=== PATIENT | female | born 1970 | race African-American/Black ===

== ENCOUNTER 2020-02-20 19:25 | Inpatient (IN) ==
--- NOTE | 2020-02-20 19:41 | DR.SOBA ---
HPI Time Seen Time Seen by Provider: 02/20/20 19:33 Complaints Chief Complaint Doctors Comments: PATIENT COMPLAINS OF INTERMITTENT FEVER, CHILLS, GENERALIZED ACHES X 1 WEEK, ONSET OF DYSPNEA X 2 DAYS WORSE UPON EXERTION. HAS OCCASIONAL PAIN UPON INSPIRATION. HAS ASSOCIATED NONPRODUCTIVE COUGH. PMH PMH Past Medical History: Hypertension Past Surgical History: Yes Surgical History: Appendectomy, Cholecystectomy and Hysterectomy Family History Family Medical History: Diabetes Mellitus, Cancer, CT and Hypertension Social History Do you use any recreational Drugs:: No ROS Review of Systems Constitutional: See HPI, Chills, Fever, Malaise, Weakness and Fatigue Eyes: No Symptoms Reported ENTM: No Symptoms Reported Respiratoy: Non-Productive Cough, Dry Cough and Short of Breath Cardiovascular: Chest Pain (PAINS UPON INSPIRATION) Gastrointestinal/Abdominal: No Symptoms Reported Genitourinary: No Symptoms Reported Neurological: No Symptoms Reported Musculoskeletal: Muscle Pain Integumentary: No Symptoms Reported Hematologic/Lymphatic: No Symptoms Reported Endocrine: No Symptoms Reported Psychiatric: No Symptoms Reported All Other Systems: Reviewed and Negative PE Vital Signs Vitals: Temperature 99.3 F Pulse Rate 88 Respiratory Rate 20 Blood Pressure [Left Arm] 139/89 Blood Pressure [Right Arm] 121/71 Blood Pressure [Standing] 131/76 Blood Pressure [Sitting] 121/78 Blood Pressure [Lying] 120/77 Blood Pressure 133/74 O2 Sat by Pulse Oximetry 96 General Limitations: No Limitations General Appearance: Alert and In No Apparent Distress Head Head Exam: Normal Inspection Eyes Eye exam: Normal Appearance ENT ENT Exam: Normal Exam Neck Neck Exam: Normal Inspection Chest Chest Inspection: Normal Inspection Respiratory Respiratory Exam: Prolonged Expiratory Phase (BILATERAL TERMINAL EXPIRATORY WH EEZES) Respiratory Exam: Bilateral: Clear to Auscultation and Bilateral: Wheezing, Upper: Wheezing and Lower: Wheezing Cardiovascular Cardiovascular Exam: Regular Rate and Normal Rhythm Abdominal Exam Abdominal Exam: Normal Inspection, Normal Bowel Sounds and Soft Extremities Extremities Exam: Normal Inspection Back Back Exam: Normal Inspection Neurologic Neurological Exam: Alert and Oriented X3 Psychiatric Psychiatric Exam: Normal Affect and Normal Mood Skin Skin Exam: Warm, Dry, Intact and Normal Color COURSE Consultation Called: 22:40 Call Returned: 22:43 Consultation Comments: [place] DR [place]AR[place] 2243 FOR INPATIENT ADMIT ROR Labs Reviewed Laboratory Results Reviewed?: Yes Result Diagrams: 02/20/20 20:32 02/20/20 20:32 Laboratory: WBC 4.5 X10^3/uL (3.6-10.0) 02/20/20 20: RBC 5.29 X10^6/uL (3.5-5.4) 02/20/20 20: Hgb 14.0 g/dL (12.0-16.0) 02/20/20 20: Hct 43.1 % (36.0-47.0) 02/20/20 20: MCV 81.4 fL (80.0-100.0) 02/20/20 20: MCH 26.5 pg (27.0-34.0) L 02/20/20 20: MCHC 32.6 g/dL (33.0-35.0) L 02/20/20: RDW 15.5 % (11.6-16.5) 02/20/20 20: Plt Count 359 X10^3/uL (150.0-450.0) 02/20/20: MPV 8.1 fL (7.4-11.0) 02/20/20 20: Neut % (Auto) 71.9 % (42.0-75.0) 02/20/20 20: Lymph % (Auto) 22.9 % (21.0-51.0) 02/20/20: [place] % (Auto) 5.1 % (0.0-13.0) 02/20/20: Eos % (Auto) 0.0 % (0.9-2.9) L 02/20/20: Baso % (Auto) 0.1 % (0.2-1.0) L 02/20/20 20: Neut # (Auto) 3.2 x10^3/uL (2.2-4.8) 02/20/20 20: Lymph # (Auto) 1.0 X10^3/uL (1.3-2.9) L 02/20/20: [place] # (Auto) 0.2 x10^3/uL (0.3-0.8) L 02/20/20 20: Eos # (Auto) 0.0 x10^3/uL (0.0-0.2) 02/20/20 20:32 Baso # (Auto) 0.0 X10^3/uL (0.0-0.1) 02/20/20 20:32 Absolute Nucleated RBC 0.0 /100WBC 02/20/20 20:32 PT 13.4 SECONDS (11.8-14.3) 02/20/20 20:32 INR Target Range - 02/20/20 20: INR 1.05 (0.8-1.3) 02/20/20 20:32 D-Dimer 1.05 ug/ml (0.0-0.57) H* 02/20/20 20:32 Sample Site Rrad 02/20/20 21:01 ABG pH 7.530 (7.35-7.45) H 02/20/20 21:01 ABG pCO2 30.0 mmHg (35.0-45.0) L 02/20/20 21:01 ABG pO2 109.0 mmHg (80.0-100.0) H 02/20/20 21:01 ABG HCO3 25.1 mmol/L (22-26) 02/20/20 21:01 ABG O2 Saturation 99.0 % (90-100) 02/20/20 21:01 ABG Base Excess 3.0 mmol/L (-2.0-2.0) H 02/20/20 21:01 Rene Test Pos 02/20/20 21:01 A-a Gradient 3.0 mmHg 02/20/20 21:01 FiO2 21.0 02/20/20 21:01 Blood Gas Comments Terri abg well-mtf 02/20/20 21:01 Sodium 142 mmol/L (136-145) 02/20/20 20:32 Corrected Sodium 143 mmol/L (136-145) 02/20/20 20:32 Potassium 3.6 mmol/L (3.5-5.1) 02/20/20 20: Chloride 102 mmol/L (98-107) 02/20/20 20:32 Carbon Dioxide 29.0 mmol/L (21-32) 02/20/20 20:32 BUN 10 mg/dL (7-18) 02/20/20 20:32 Creatinine 1.04 mg/dL (0.55-1.02) H 02/20/20 20:32 Est GFR (MDRD) Af Amer > 60 (>60) 02/20/20 20:32 Est GFR (MDRD) Non-Af 60 (>60) 02/20/20 20:32 Glucose 123 mg/dL (65-99) H 02/20/20 20:32 Lactic Acid 1.5 mmol/L (0.4-2.0) 02/20/20 20:32 Calcium 9.0 mg/dL (8.5-10.1) 02/20/20 20:32 Corrected Calcium 9.6 mg/dL (8.5-10.1) 02/20/20 20:32 Total Bilirubin 0.50 mg/dL (0.2-1.0) 02/20/20 20:32 AST 45 Units/L (15-37) H 02/20/20 20:32 ALT 26 Units/L (12-78) 02/20/20 20:32 Alkaline Phosphatase 47 Units/L (46-116) 02/20/20 20:32 Troponin I < 0.02 ng/mL (0-1.5) 02/20/20 20:32 B-Natriuretic Peptide < 5.0 pg/mL (0-79) 02/20/20 20:32 Total Protein 8.1 g/dL (6.4-8.2) 02/20/20 20:32 Albumin 3.2 g/dL (3.4-5.0) L 02/20/20 20:32 Globulin 4.9 g/dL (2.5-4.5) H 02/20/20 20:32 Albumin/Globulin Ratio 0.7 Ratio (1.1-2.1) L 02/20/20 20:32 SARS CoV-2 RNA Rapid SERGIO Positive (NEGATIVE) A 02/20/20 22:40 XRAY XRAY Interpreted by: Radiologist X-ray Results: EXAM: CTA CHEST WITH INTRAVENOUS CONTRAST HISTORY: Shortness of breath. Covid positive. TECHNIQUE: Spiral axial CT images are obtained through the chest with the administration of intravenous contrast. Coronal, sagittal, and 3D MIP images are reformatted. DOSIMETRY: Total DLP 522.0 mGycm; CTDI 183.8 mGy COMPARISON: None available. FINDINGS: CARDIOVASCULAR: There is no evidence for pulmonary embolic disease. The heart size and mediastinal vascular structures are within normal limits. There is no significant aortic or coronary atherosclerosis seen. No thoracic aortic aneurysm or dissection is noted. MEDIASTINUM AND MANAS: No mass lesion, lymphadenopathy, emphysema, or abnormal fluid collection is seen. LUNGS: There are extensive bilateral patchy groundglass parenchymal infiltrates throughout both lungs in keeping with acute Covid pneumonia in the appropriate clinical setting. There is no lung mass, lung nodule, or endobronchial obstructing lesion seen. No pleural effusion or pneumothorax is evident. CHEST WALL: There are no chest wall lesions seen. Bilateral cervical thoracic spine stabilization rods and pedicle screws are noted in situ. The visualized bony structures are otherwise within normal limits. No axillary lymphadenopathy is noted. Bilateral breast implants are noted in situ. UPPER ABDOMEN: Limited views through the upper abdomen demonstrate no gross acute abnormality. Status post cholecystectomy. IMPRESSION: 1. Extensive bilateral patchy groundglass parenchymal infiltrates throughout both lungs in keeping with acute Covid pneumonia in the appropriate clinical setting. Recommend clinical correlation and appropriate follow up evaluation to ensure complete clearance. 2. No evidence for PE, aortic aneurysm or aortic dissection. 3. No endobronchial obstructing lesion, pleural effusion, or pneumothorax seen. Electronically signed by: Michael Leach (Feb 20, 2020 22:18:44) EKG Rate: 84 Rhythm: NSR and ST (borderline st abnormalities) Block: None Opioid Opioid Risk Tool Age (James box if 16-45): No History of Preadolescent Sexual Abuse: No Total: 0 Total Score Risk Category: Low Risk Copyright: Siva GARCIA predicting aberrant behaviors Diagnosis Discharge Problem: Pneumonia due to COVID-19 virus Instructions Forms: Precautions for COVID19 Patient Portal Social Distancing
[2020-02-20 19:42] VITALS: BMI 31.3
[2020-02-20] MEDS ORDERED: SOLU-Medrol 125 MG VIAL IVP ONE ×2 (19:57→20:19)
[2020-02-20] MEDS ORDERED: NS 1000 ML 1,000 ML IV ONE (20:14)
[2020-02-20] MEDS ORDERED: SOLU-Medrol 125 MG VIAL ONE (20:16)
[2020-02-20] MEDS ORDERED: NS 1000 ML 1,000 ML ONE (20:17)
[2020-02-20] MEDS: LEVAQUIN PREMIX IV 750 MG 750 MG/150 ML BAG IV ONE ×2 (20:41→20:45)
[2020-02-20] MEDS ORDERED: LEVAQUIN PREMIX IV 750 MG 750 MG/150 ML BAG IV ONE (20:44)
[2020-02-20 20:47] LABS: BASOPHILS % (AUTO) 0.1 % (0.2-1.0); HEMATOCRIT 43.1 % (36.0-47.0); LYMPHOCYTES % (AUTO) 22.9 % (21.0-51.0); MEAN CORPUSCULAR HEMOGLOBIN 26.5 pg (27.0-34.0); MEAN CORPUSCULAR HGB CONC 32.6 g/dL (33.0-35.0); MEAN CORPUSCULAR VOLUME 81.4 fL (80.0-100.0); MEAN PLATELET VOLUME 8.1 fL (7.4-11.0); MONOCYTES # (AUTO) 0.2 x10^3/uL (0.3-0.8); MONOCYTES % (AUTO) 5.1 % (0.0-13.0); NEUTROPHILS # (AUTO) 3.2 x10^3/uL (2.2-4.8); NEUTROPHILS % (AUTO) 71.9 % (42.0-75.0); PLATELET COUNT 359 X10^3/uL (150.0-450.0); RED BLOOD COUNT 5.29 X10^6/uL (3.5-5.4); RED CELL DISTRIBUTION WIDTH 15.5 % (11.6-16.5); WHITE BLOOD COUNT 4.5 X10^3/uL (3.6-10.0)
[2020-02-20 20:55] LABS: LACTIC ACID 1.5 mmol/L (0.4-2.0)
[2020-02-20 20:58] LABS: ALANINE AMINOTRANSFERASE 26 Units/L (12-78); ALBUMIN 3.2 g/dL (3.4-5.0); ALKALINE PHOSPHATASE 47 Units/L (46-116); ASPARTATE AMINO TRANSFERASE 45 Units/L (15-37); BLOOD UREA NITROGEN 10 mg/dL (7-18); CHLORIDE 102 mmol/L (98-107); COR CA(FOR HYPOALB) 9.6 mg/dL (8.5-10.1); COR NA(FOR HYPERGLY) 143 mmol/L (136-145); CREATININE 1.04 mg/dL (0.55-1.02); SODIUM 142 mmol/L (136-145); TOTAL PROTEIN 8.1 g/dL (6.4-8.2); TROPONIN I < 0.02 ng/mL (0-1.5); eGFR NON BLACK RACES 60 (>60)
[2020-02-20 21:07] LABS: ABG HCO3 25.1 mmol/L (22-26)
[2020-02-20 21:08] LABS: ABG ALLEN TEST POS
--- NOTE | 2020-02-20 22:20 | CT ---
EXAM: CTA CHEST WITH INTRAVENOUS CONTRASTHISTORY: Shortness of breath. Covid positive.TECHNIQUE: Spiral axial CT images are obtained through the chest with the administration of intravenous contrast. Coronal, sagittal, and 3D MIP images are reformatted.DOSIMETRY: Total DLP 522.0 mGycm; CTDI 183.8 mGyCOMPARISON: None available.FINDINGS:CARDIOVASCULAR: There is no evidence for pulmonary embolic disease. The heart size and mediastinal vascular structures are within normal limits. There is no significant aortic or coronary atherosclerosis seen. No thoracic aortic aneurysm or dissection is noted.MEDIASTINUM AND MANAS: No mass lesion, lymphadenopathy, emphysema, or abnormal fluid collection is seen.LUNGS: There are extensive bilateral patchy groundglass parenchymal infiltrates throughout both lungs in keeping with acute Covid pneumonia in the appropriate clinical setting. There is no lung mass, lung nodule, or endobronchial obstructing lesion seen. No pleural effusion or pneumothorax is evident.CHEST WALL: There are no chest wall lesions seen. Bilateral cervical thoracic spine stabilization rods and pedicle screws are noted in situ. The visualized bony structures are otherwise within normal limits. No axillary lymphadenopathy is noted. Bilateral breast implants are noted in situ.UPPER ABDOMEN: Limited views through the upper abdomen demonstrate no gross acute abnormality. Status post cholecystectomy.IMPRESSION:1. Extensive bilateral patchy groundglass parenchymal infiltrates throughout both lungs in keeping with acute Covid pneumonia in the appropriate clinical setting. Recommend clinical correlation and appropriate follow up evaluation to ensure complete clearance.2. No evidence for PE, aortic aneurysm or aortic dissection.3. No endobronchial obstructing lesion, pleural effusion, or pneumothorax seen.Electronically signed by: Michael Leach (Feb 20, 2020 22:18:44)
[2020-02-21] MEDS ORDERED: AMBIEN PO PRN (00:27)
[2020-02-21] MEDS ORDERED: LACTULOSE PO PRN (00:27)
[2020-02-21] MEDS ORDERED: OXYCODONE 30 MG PO PRN (00:27)
[2020-02-21] MEDS: NS 1000 ML 1,000 ML IV SCH (01:48)
[2020-02-21] MEDS: ASCORBIC ACID INJ MULTI-DOSE VIAL 1,500 MG in NS 100 ML IV 100 ML IV SCH ×4 (03:29→20:34)
[2020-02-21] MEDS ORDERED: ROXICODONE TAB 15 MG PO PRN (03:51)
[2020-02-21] MEDS ORDERED: CHRONULAC PO PRN (04:01)
[2020-02-21 05:17] LABS: BASOPHILS % (AUTO) 0 % (0.2-1.0); HEMATOCRIT 44.7 % (36.0-47.0); HEMOGLOBIN 14.2 g/dL (12.0-16.0); LYMPHOCYTES # (AUTO) 0.6 X10^3/uL (1.3-2.9); LYMPHOCYTES % (AUTO) 23.3 % (21.0-51.0); MEAN CORPUSCULAR HGB CONC 31.7 g/dL (33.0-35.0); MEAN CORPUSCULAR VOLUME 82.1 fL (80.0-100.0); MEAN PLATELET VOLUME 8.8 fL (7.4-11.0); MONOCYTES # (AUTO) 0.2 x10^3/uL (0.3-0.8); MONOCYTES % (AUTO) 9.6 % (0.0-13.0); NEUTROPHILS # (AUTO) 1.7 x10^3/uL (2.2-4.8); NEUTROPHILS % (AUTO) 67.1 % (42.0-75.0); PLATELET COUNT 380 X10^3/uL (150.0-450.0); RED BLOOD COUNT 5.45 X10^6/uL (3.5-5.4); RED CELL DISTRIBUTION WIDTH 15.9 % (11.6-16.5); WHITE BLOOD COUNT 2.5 X10^3/uL (3.6-10.0)
[2020-02-21 05:26] LABS: ALANINE AMINOTRANSFERASE 23 Units/L (12-78); ALKALINE PHOSPHATASE 49 Units/L (46-116); ASPARTATE AMINO TRANSFERASE 40 Units/L (15-37); BLOOD UREA NITROGEN 10 mg/dL (7-18); CALCIUM 8.7 mg/dL (8.5-10.1); CARBON DIOXIDE 27.4 mmol/L (21-32); CHLORIDE 103 mmol/L (98-107); COR CA(FOR HYPOALB) 9.5 mg/dL (8.5-10.1); COR NA(FOR HYPERGLY) 143 mmol/L (136-145); CREATININE 0.96 mg/dL (0.55-1.02); SODIUM 141 mmol/L (136-145); TROPONIN I < 0.02 ng/mL (0-1.5); eGFR NON BLACK RACES > 60 (>60)
[2020-02-21 05:40] LABS: PLATELET MORPHOLOGY COMMENT NORMAL (NORMAL)
[2020-02-21] MEDS: SOLU-Medrol 40 MG VIAL IVP SCH ×3 (05:58→21:09)
[2020-02-21] MEDS ORDERED: SOLUMEDROL IV SCH (06:00)
[2020-02-21] MEDS: JANUVIA PO SCH (08:35)
[2020-02-21] MEDS: LINZESS PO SCH (08:36)
[2020-02-21] MEDS: PROTONIX TAB 40 MG PO SCH (08:36)
[2020-02-21] MEDS: ZINC SULFATE PO SCH ×2 (08:36→20:36)
[2020-02-21] MEDS: NEURONTIN CAP 400 MG PO SCH ×4 (08:37→20:35)
[2020-02-21] MEDS: TRICOR TAB 160 MG PO SCH (08:37)
[2020-02-21] MEDS: LOVENOX INJ 30 MG SYR SC SCH ×2 (08:39→20:34)
[2020-02-21] MEDS: ZESTRIL TAB 5 MG PO SCH (08:43)
[2020-02-21] MEDS ORDERED: PLAQUENIL PO SCH (09:00)
[2020-02-21] MEDS ORDERED: VITAMIN D (1.25MG) PO SCH (09:00)
[2020-02-21] MEDS ORDERED: DECADRON TAB PO SCH (09:00)
[2020-02-21] MEDS ORDERED: VITAMIN A PO SCH (09:00)
[2020-02-21] MEDS ORDERED: LEVAQUIN PREMIX IV 750 MG 750 MG/150 ML BAG IV SCH (09:00)
[2020-02-21] MEDS ORDERED: LINACLOTIDE 290 MCG PO SCH (09:00)
[2020-02-21] MEDS: PULMICORT NEB TX 0.5 MG NEB SCH ×2 (09:10→21:52)
[2020-02-21] MEDS: DUONEB 0.5 MG/3 MG (3 mL) NEB SCH ×4 (09:10→21:52)
[2020-02-21] MEDS ORDERED: REMDESIVIR 200 MG in NS 250 ML IV 250 ML IV SCH (09:56)
[2020-02-21] MEDS ORDERED: REMDESIVIR 100 MG in NS 250 ML IV 250 ML IV SCH (10:00)
--- NOTE | 2020-02-21 11:18 | DR.H&P ---
H&P History & Physical for Day of: H&P Date: 02/21/20 Chief Complaint Chief Complaint: Fever, Cough Shortness of breath Allergies Allergies Allergy/AdvReac Type Severity Reaction Status Date / Time No Known Drug Allergies Allergy Verified 07/24/19 22:14 History of Present Illness History of Present Illness: Pt is a 49 year old female pmhx HTN, DMT2, presenting with fever, weakness, and shortness of breath that progressively worsened over the past 2-3 days. When she presented to the ED she was hypoxic and required supplemental O2 of 4L nc, she was found to be COVID-19 positive. Labs/imaging: Wbc 2.5, Hgb 14.2, Plt 380, Na 141, K 4.4, Cr 0.96, Glucose 170, C RP 55, AB.53/30/109/25/99% on RA. D-dimer 1.05, COVID-19 positive(02/19). CTA: 1. Extensive bilateral patchy ground glass parenchymal infiltrates throughout both lungs in keeping with acute Covid pneumonia in the appropriate clinical setting. Recommend clinical correlation and appropriate follow up evaluation to ensure complete clearance. 2. No evidence for PE, aortic aneurysm or aortic dissection. 3. No endobronchial obstructing lesion, pleural effusion, or pneumothorax seen. Will start her on Remdesivir, Zosyn, Solumedrol 80mg Q8h, Bronchodilators, supplemental O2, immune supporting supplements, RT support, pneumonia protocol. Restart home medications. Will continue to monitor and follow up labs/ imaging in the morning. Past Medical History Past Medical History: Diabetes and Hypertension Past Surgical History Surgical History: Abdominal Surgery, Appendectomy, Cholecystectomy, Hyster ectomy, Ortho Surgery and Other Family History Family Medical History: Diabetes Mellitus, Cancer, MD, Coronary Artery Disease and Hypertension Social History Does patient currently use any type of tobacco product: No Have you used tobacco products in the last 12 months: No Type of Tobacco Use: None Does any household member use tobacco: No Alcohol Use: None Drug Use: None Medications Home Medications: No Known Drug Allergies Allergy (Verified 07/24/19 22:14) CONTINUE taking the following medications atorvastatin 10 mg PO QHS 02/20/20 [History] diazepam 5 mg PO TID PRN 02/20/20 [History] dicyclomine 10 mg PO TID 02/20/20 [History] fentanyl 1 patch TRANSDERMAL Q72H 02/20/20 [History] indomethacin [Indocin] 25 mg PO BID 02/20/20 [History] lactulose [Constulose] 10 g PO BID PRN 02/20/20 [History] nabumetone 500 mg PO BID 02/20/20 [History] Labs Result Diagrams: 02/21/20 04:44 02/21/20 04:44 Labs: Laboratory WBC 2.5 X10^3/uL (3.6-10.0) L 02/21/20 04:44 RBC 5.45 X10^6/uL (3.5-5.4) H 02/21/20 04:44 Hgb 14.2 g/dL (12.0-16.0) 02/21/20 04:44 Hct 44.7 % (36.0-47.0) 02/21/20 04:44 MCV 82.1 fL (80.0-100.0) 02/21/20 04:44 MCH 26.0 pg (27.0-34.0) L 02/21/20 04:44 MCHC 31.7 g/dL (33.0-35.0) L 02/21/20 04:44 RDW 15.9 % (11.6-16.5) 02/21/20 04:44 Plt Count 380 X10^3/uL (150.0-450.0) 02/21/20 04:44 Plt Count Comment Adequate (ADEQUATE) 02/21/20 04:44 MPV 8.8 fL (7.4-11.0) 02/21/20 04:44 Neut % (Auto) 67.1 % (42.0-75.0) 02/21/20 04:44 Lymph % (Auto) 23.3 % (21.0-51.0) 02/21/20 04:44 [place] % (Auto) 9.6 % (0.0-13.0) 02/21/20 04:44 Eos % (Auto) 0.0 % (0.9-2.9) L 02/21/20 04:44 Baso % (Auto) 0 % (0.2-1.0) L 02/21/20 04:44 Neut # (Auto) 1.7 x10^3/uL (2.2-4.8) L 02/21/20 04:44 Lymph # (Auto) 0.6 X10^3/uL (1.3-2.9) L 02/21/20 04:44 [place] # (Auto) 0.2 x10^3/uL (0.3-0.8) L 02/21/20 04:44 Eos # (Auto) 0.0 x10^3/uL (0.0-0.2) 02/21/20 04:44 Baso # (Auto) 0.0 X10^3/uL (0.0-0.1) 02/21/20 04:44 Absolute Nucleated RBC 0.4 /100WBC 02/21/20 04:44 Total Counted 100 02/21/20 04:44 Neutrophils % (Manual) 70 % (39-76) 02/21/20 04:44 Lymphocytes % (Manual) 22 % (13-43) 02/21/20 04:44 Monocytes % (Manual) 8 % (4-9) 02/21/20 04:44 Plt Morphology Comment Normal (NORMAL) 02/21/20 04:44 RBC Morphology Normal (NORMAL) 02/21/20 04:44 PT 13.4 SECONDS (11.8-14.3) 02/20/20 20:32 INR Target Range - 02/20/20 20:32 INR 1.05 (0.8-1.3) 02/20/20 20:32 D-Dimer 1.05 ug/ml (0.0-0.57) H* 02/20/20 20:32 Sample Site Rrad 02/20/20 21:01 ABG pH 7.530 (7.35-7.45) H 02/20/20 21:01 ABG pCO2 30.0 mmHg (35.0-45.0) L 02/20/20 21:01 ABG pO2 109.0 mmHg (80.0-100.0) H 02/20/20 21:01 ABG HCO3 25.1 mmol/L (22-26) 02/20/20 21:01 ABG O2 Saturation 99.0 % (90-100) 02/20/20 21:01 ABG Base Excess 3.0 mmol/L (-2.0-2.0) H 02/20/20 21:01 Rene Test Pos 02/20/20 21:01 A-a Gradient 3.0 mmHg 02/20/20 21:01 FiO2 21.0 02/20/20 21:01 Blood Gas Comments Terri abg well-mtf 02/20/20 21:01 Sodium 141 mmol/L (136-145) 02/21/20 04:44 Corrected Sodium 143 mmol/L (136-145) 02/21/20 04:44 Potassium 4.4 mmol/L (3.5-5.1) 02/21/20 04:44 Chloride 103 mmol/L (98-107) 02/21/20 04:44 Carbon Dioxide 27.4 mmol/L (21-32) 02/21/20 04:44 BUN 10 mg/dL (7-18) 02/21/20 04:44 Creatinine 0.96 mg/dL (0.55-1.02) 02/21/20 04:44 Est GFR (MDRD) Af Amer > 60 (>60) 02/21/20 04:44 Est GFR (MDRD) Non-Af > 60 (>60) 02/21/20 04:44 Glucose 170 mg/dL (65-99) H 02/21/20 04:44 POC Glucose (mg/dL) 135 mg/dL (65-99) H 02/21/20 06:03 Lactic Acid 1.5 mmol/L (0.4-2.0) 02/20/20 20:32 Calcium 8.7 mg/dL (8.5-10.1) 02/21/20 04:44 Corrected Calcium 9.5 mg/dL (8.5-10.1) 02/21/20 04:44 Total Bilirubin 0.40 mg/dL (0.2-1.0) 02/21/20 04:44 AST 40 Units/L (15-37) H 02/21/20 04:44 ALT 23 Units/L (12-78) 02/21/20 04:44 Alkaline Phosphatase 49 Units/L (46-116) 02/21/20 04:44 Troponin I < 0.02 ng/mL (0-1.5) 02/21/20 04:44 C-Reactive Protein 55.70 mg/L (0-3.0) H 02/21/20 04:44 B-Natriuretic Peptide < 5.0 pg/mL (0-79) 02/20/20 20:32 Total Protein 8.0 g/dL (6.4-8.2) 02/21/20 04:44 Albumin 3.0 g/dL (3.4-5.0) L 02/21/20 04:44 Globulin 5.0 g/dL (2.5-4.5) H 02/21/20 04:44 Albumin/Globulin Ratio 0.6 Ratio (1.1-2.1) L 02/21/20 04:44 SARS CoV-2 RNA Rapid SERGIO Positive (NEGATIVE) A 02/20/20 22:40 Review of Systems Constitutional: Fever, Chills and Weakness Eyes: No Symptoms Reported ENT: No Symptoms Reported Respiratory: Cough, Shortness of Breath and Wheezing Cardiovascular: No Symptoms Reported Gastrointestinal: No Symptoms Reported Genitourinary: No Symptoms Reported Musculoskeletal: No Symptoms Reported Skin: No Symptoms Reported Neurological: No Symptoms Reported Physical Exam Vital Signs: Temperature 98.1 F Pulse Rate 93 Respiratory Rate 35 Blood Pressure [Left Arm] 139/89 Blood Pressure [Right Arm] 121/71 Blood Pressure [Standing] 131/76 Blood Pressure [Sitting] 121/78 Blood Pressure [Lying] 120/77 Blood Pressure 130/74 O2 Sat by Pulse Oximetry 88 Oriented: Normal Eyes: Normal Ear: Normal Nose: Normal Throat: Normal Respiratory: Diminished Throughout and Wheezes Throughout Cardiovascular: Normal : Normal Auscultation: Bowel Sounds: Normal Palpation: Normal Tenderness: Normal Skin: Normal Musculoskeletal: Normal Psychiatric: Normal Mood Description: Calm and Appropriate Affect: Normal Speech Pattern: Clear and Appropriate Assessment/Plan (1) Pneumonia due to COVID-19 virus: Status: Acute Plan: Remdesivir, Solumedrol, Zosyn, Supplemental O2, Bronchodilators, Review H&P Reviewed: Yes Patient was examined?: Yes
[2020-02-21] MEDS: HumuLIN R SC PRN ×2 (11:30→16:42)
[2020-02-21] MEDS: ZOSYN VIAL 3.375 GRAMS 3.375 G in NS 100 ML IV + SPIKE MINIBAG* 100 ML IV SCH ×3 (12:12→21:09)
[2020-02-21] MEDS: NABUMETONE 500 MG PO SCH ×2 (13:36→20:49)
[2020-02-21] MEDS: LIPITOR TAB 10 MG PO SCH (20:34)
[2020-02-21] MEDS: SNACK - Diabetic Appropriate PO SCH (20:34)
[2020-02-21] MEDS: PEPCID TAB 20 MG PO SCH (20:35)
[2020-02-21] MEDS: MOBIC TAB 15 MG PO SCH (20:35)
[2020-02-21] MEDS: REQUIP PO SCH (20:49)
[2020-02-22] MEDS: NS 1000 ML 1,000 ML IV SCH ×2 (00:50→17:44)
[2020-02-22] MEDS: ASCORBIC ACID INJ MULTI-DOSE VIAL 1,500 MG in NS 100 ML IV 100 ML IV SCH ×4 (03:25→21:20)
[2020-02-22 05:31] LABS: BASOPHILS % (AUTO) 0.2 % (0.2-1.0); HEMATOCRIT 37.2 % (36.0-47.0); LYMPHOCYTES # (AUTO) 0.9 X10^3/uL (1.3-2.9); LYMPHOCYTES % (AUTO) 13.7 % (21.0-51.0); MEAN CORPUSCULAR HEMOGLOBIN 26.4 pg (27.0-34.0); MEAN CORPUSCULAR HGB CONC 32.5 g/dL (33.0-35.0); MEAN CORPUSCULAR VOLUME 81.2 fL (80.0-100.0); MEAN PLATELET VOLUME 8.2 fL (7.4-11.0); MONOCYTES # (AUTO) 0.6 x10^3/uL (0.3-0.8); MONOCYTES % (AUTO) 9.7 % (0.0-13.0); NEUTROPHILS % (AUTO) 76.4 % (42.0-75.0); PLATELET COUNT 421 X10^3/uL (150.0-450.0); RED BLOOD COUNT 4.58 X10^6/uL (3.5-5.4); RED CELL DISTRIBUTION WIDTH 15.6 % (11.6-16.5); WHITE BLOOD COUNT 6.6 X10^3/uL (3.6-10.0)
[2020-02-22] MEDS: SOLU-Medrol 40 MG VIAL IVP SCH ×3 (05:41→21:24)
[2020-02-22] MEDS: ZOSYN VIAL 3.375 GRAMS 3.375 G in NS 100 ML IV + SPIKE MINIBAG* 100 ML IV SCH ×4 (05:41→22:03)
--- NOTE | 2020-02-22 05:53 | RAD ---
HISTORYPneumoniaSTUDYAP chestCOMPARISONCT chest 02/20/2020FINDINGSNormal heart size. There are diffuse, indistinct bilateral pulmonary infiltrates. No localized consolidation, extrapulmonary air or complicating pleural fluid is seen.IMPRESSIONBilateral pulmonary infiltrates consistent with atypical pneumonia.Electronically signed by: BECCA HERNANDEZ (Feb 22, 2020 05:51:44)
[2020-02-22 05:55] LABS: HEMOGLOBIN 12.1 g/dL (12.0-16.0)
[2020-02-22 06:06] LABS: ALANINE AMINOTRANSFERASE 22 Units/L (12-78); ALBUMIN 2.7 g/dL (3.4-5.0); ALKALINE PHOSPHATASE 37 Units/L (46-116); ASPARTATE AMINO TRANSFERASE 25 Units/L (15-37); BLOOD UREA NITROGEN 9 mg/dL (7-18); CALCIUM 8.5 mg/dL (8.5-10.1); CARBON DIOXIDE 28.6 mmol/L (21-32); CHLORIDE 108 mmol/L (98-107); COR CA(FOR HYPOALB) 9.5 mg/dL (8.5-10.1); COR NA(FOR HYPERGLY) 146 mmol/L (136-145); CREATININE 0.89 mg/dL (0.55-1.02); SODIUM 144 mmol/L (136-145); TOTAL PROTEIN 6.9 g/dL (6.4-8.2); eGFR NON BLACK RACES > 60 (>60)
[2020-02-22] MEDS: LIPITOR TAB 10 MG PO SCH ×2 (06:58→21:21)
[2020-02-22] MEDS: NEURONTIN CAP 400 MG PO SCH ×4 (08:20→21:22)
[2020-02-22] MEDS: ZINC SULFATE PO SCH ×2 (08:21→21:23)
[2020-02-22] MEDS: JANUVIA PO SCH (08:22)
[2020-02-22] MEDS: PROTONIX TAB 40 MG PO SCH (08:22)
[2020-02-22] MEDS: TRICOR TAB 160 MG PO SCH (08:22)
[2020-02-22] MEDS: LINZESS PO SCH (08:22)
[2020-02-22] MEDS: LOVENOX INJ 30 MG SYR SC SCH ×2 (08:23→21:23)
[2020-02-22] MEDS: NABUMETONE 500 MG PO SCH ×2 (08:23→21:21)
[2020-02-22] MEDS: VITAMIN A PO SCH (08:24)
[2020-02-22] MEDS: VITAMIN D3 125 mcg (5,000 UNITS) PO SCH (08:26)
[2020-02-22] MEDS: ZESTRIL TAB 5 MG PO SCH (08:27)
[2020-02-22] MEDS: DUONEB 0.5 MG/3 MG (3 mL) NEB SCH ×4 (08:35→21:05)
[2020-02-22] MEDS: PULMICORT NEB TX 0.5 MG NEB SCH ×2 (08:35→21:05)
[2020-02-22] MEDS: REMDESIVIR 100 MG in NS 250 ML IV 250 ML IV SCH (09:22)
[2020-02-22] MEDS: HumuLIN R SC PRN ×3 (11:37→21:24)
--- NOTE | 2020-02-22 11:42 | PCM.PROG ---
Progress Note Progress Note for Day of Date of Exam: 02/22/20 Subjective Subjective: Pt is a 49 year old female pmhx HTN, DMT2, admitted for COVID-19 pneumonia (positive 02/19). This morning patient reports feeling a little better, no acute events overnight. Pt was able to be weaned down from 4L to 3L nc, continue to wean oxygen as tolerated. Labs/imaging: Wbc 6.6, Hgb 12.1, Plt 421, Na 144, K 4.1, Cr 0.89, Glucose 186, CRP 55>14, CXR: Bilateral pulmonary infiltrates consistent with atypical pneumonia. Treatment course includes: Remdesivir, Zosyn, Solumedrol 80mg Q8h, Bronchodilators, supplemental O2, immune supporting supplements, RT support, pneumonia protocol. Continue current treatment plan. Will continue to monitor and follow up labs/ imaging in the morning. Past Medical Family Social History Past Med/Fam/Surg Hx: No changes since H&P Allergies: Allergies No Known Drug Allergies Allergy (Verified 07/24/19 22:14) Review of Systems ROS: No change since H&P Vital Signs and I&O's Vital Signs: Temperature 97.5 F Pulse Rate 83 Respiratory Rate 22 Blood Pressure [Left Arm] 139/89 Blood Pressure [Right Arm] 121/71 Blood Pressure [Standing] 131/76 Blood Pressure [Sitting] 121/78 Blood Pressure [Lying] 120/77 Blood Pressure 122/69 O2 Sat by Pulse Oximetry 92 Intake and Output: Intake & Output 02/19/20 02/20/20 02/21/20 02/22/20 23:59 23:59 23:59 23:59 Intake Total 4768 / 4768 260 / 260 Balance 4768 / 4768 260 / 260 Physical Exam Oriented: Normal Eyes: Normal Ear: Normal Nose: Normal Throat: Normal Respiratory: Diminished and Rales Cardiovascular: Normal : Normal Auscultation: Bowel Sounds: Normal Tenderness: Normal Skin: Normal Musculoskeletal: Normal Psychiatric: Normal Mood Description: Calm and Appropriate Affect: Normal Speech Pattern: Clear and Appropriate Laboratory and Diagnostics Result Diagrams: 02/22/20 04:35 02/22/20 04:39 Labs: Laboratory WBC 6.6 X10^3/uL (3.6-10.0) 02/22/20 04:35 RBC 4.58 X10^6/uL (3.5-5.4) 02/22/20 04:35 Hgb 12.1 g/dL (12.0-16.0) D 02/22/20 04:35 Hct 37.2 % (36.0-47.0) 02/22/20 04:35 MCV 81.2 fL (80.0-100.0) 02/22/20 04:35 MCH 26.4 pg (27.0-34.0) L 02/22/20 04:35 MCHC 32.5 g/dL (33.0-35.0) L 02/22/20 04:35 RDW 15.6 % (11.6-16.5) 02/22/20 04:35 Plt Count 421 X10^3/uL (150.0-450.0) 02/22/20 04:35 Plt Count Comment Adequate (ADEQUATE) 02/21/20 04:44 MPV 8.2 fL (7.4-11.0) 02/22/20 04:35 Neut % (Auto) 76.4 % (42.0-75.0) H 02/22/20 04:35 Lymph % (Auto) 13.7 % (21.0-51.0) L 02/22/20 04:35 [place] % (Auto) 9.7 % (0.0-13.0) 02/22/20 04:35 Eos % (Auto) 0.0 % (0.9-2.9) L 02/22/20 04:35 Baso % (Auto) 0.2 % (0.2-1.0) 02/22/20 04:35 Neut # (Auto) 5.0 x10^3/uL (2.2-4.8) H 02/22/20 04:35 Lymph # (Auto) 0.9 X10^3/uL (1.3-2.9) L 02/22/20 04:35 [place] # (Auto) 0.6 x10^3/uL (0.3-0.8) 02/22/20 04:35 Eos # (Auto) 0.0 x10^3/uL (0.0-0.2) 02/22/20 04:35 Baso # (Auto) 0.0 X10^3/uL (0.0-0.1) 02/22/20 04:35 Absolute Nucleated RBC 0.0 /100WBC 02/22/20 04:35 Total Counted 100 02/21/20 04:44 Neutrophils % (Manual) 70 % (39-76) 02/21/20 04:44 Lymphocytes % (Manual) 22 % (13-43) 02/21/20 04:44 Monocytes % (Manual) 8 % (4-9) 02/21/20 04:44 Plt Morphology Comment Normal (NORMAL) 02/21/20 04:44 RBC Morphology Normal (NORMAL) 02/21/20 04:44 PT 13.4 SECONDS (11.8-14.3) 02/20/20 20:32 INR Target Range - 02/20/20 20:32 INR 1.05 (0.8-1.3) 02/20/20 20:32 D-Dimer 1.05 ug/ml (0.0-0.57) H* 02/20/20 20:32 Sample Site Rrad 02/20/20 21:01 ABG pH 7.530 (7.35-7.45) H 02/20/20 21:01 ABG pCO2 30.0 mmHg (35.0-45.0) L 02/20/20 21:01 ABG pO2 109.0 mmHg (80.0-100.0) H 02/20/20 21:01 ABG HCO3 25.1 mmol/L (22-26) 02/20/20 21:01 ABG O2 Saturation 99.0 % (90-100) 02/20/20 21:01 ABG Base Excess 3.0 mmol/L (-2.0-2.0) H 02/20/20 21:01 Rene Test Pos 02/20/20 21:01 A-a Gradient 3.0 mmHg 02/20/20 21:01 FiO2 21.0 02/20/20 21:01 Blood Gas Comments Terri abg well-mtf 02/20/20 21:01 Sodium 144 mmol/L (136-145) 02/22/20 04:39 Corrected Sodium 146 mmol/L (136-145) H 02/22/20 04:39 Potassium 4.1 mmol/L (3.5-5.1) 02/22/20 04:39 Chloride 108 mmol/L (98-107) H 02/22/20 04:39 Carbon Dioxide 28.6 mmol/L (21-32) 02/22/20 04:39 BUN 9 mg/dL (7-18) 02/22/20 04:39 Creatinine 0.89 mg/dL (0.55-1.02) 02/22/20 04:39 Est GFR (MDRD) Af Amer > 60 (>60) 02/22/20 04:39 Est GFR (MDRD) Non-Af > 60 (>60) 02/22/20 04:39 Glucose 186 mg/dL (65-99) H 02/22/20 04:39 POC Glucose (mg/dL) 227 mg/dL (65-99) H 02/22/20 11:28 Lactic Acid 1.5 mmol/L (0.4-2.0) 02/20/20 20:32 Calcium 8.5 mg/dL (8.5-10.1) 02/22/20 04:39 Corrected Calcium 9.5 mg/dL (8.5-10.1) 02/22/20 04:39 Total Bilirubin 0.30 mg/dL (0.2-1.0) 02/22/20 04:39 AST 25 Units/L (15-37) 02/22/20 04:39 ALT 22 Units/L (12-78) 02/22/20 04:39 Alkaline Phosphatase 37 Units/L (46-116) L 02/22/20 04:39 Troponin I < 0.02 ng/mL (0-1.5) 02/21/20 04:44 C-Reactive Protein 14.10 mg/L (0-3.0) H 02/22/20 04:39 B-Natriuretic Peptide < 5.0 pg/mL (0-79) 02/20/20 20:32 Total Protein 6.9 g/dL (6.4-8.2) 02/22/20 04:39 Albumin 2.7 g/dL (3.4-5.0) L 02/22/20 04:39 Globulin 4.2 g/dL (2.5-4.5) 02/22/20 04:39 Albumin/Globulin Ratio 0.6 Ratio (1.1-2.1) L 02/22/20 04:39 SARS CoV-2 RNA Rapid SERGIO Positive (NEGATIVE) A 02/20/20 22:40 Plan (1) Pneumonia due to COVID-19 virus: Status: Acute Plan: Remdesivir, Solumedrol, Zosyn, Supplemental O2, Bronchodilators,
[2020-02-22] MEDS: SNACK - Diabetic Appropriate PO SCH (21:20)
[2020-02-22] MEDS: MOBIC TAB 15 MG PO SCH (21:21)
[2020-02-22] MEDS: PEPCID TAB 20 MG PO SCH (21:22)
[2020-02-22] MEDS: REQUIP PO SCH (21:23)
[2020-02-23] MEDS: NS 1000 ML 1,000 ML IV SCH (02:03)
[2020-02-23] MEDS: ASCORBIC ACID INJ MULTI-DOSE VIAL 1,500 MG in NS 100 ML IV 100 ML IV SCH ×2 (02:21→08:24)
[2020-02-23 04:32] LABS: ABG ALLEN TEST POS; ABG BASE EXCESS 2.2 mmol/L (-2.0-2.0); ABG HCO3 26.5 mmol/L (22-26)
[2020-02-23] MEDS: SOLU-Medrol 40 MG VIAL IVP SCH ×3 (05:14→21:25)
[2020-02-23] MEDS: ZOSYN VIAL 3.375 GRAMS 3.375 G in NS 100 ML IV + SPIKE MINIBAG* 100 ML IV SCH ×3 (05:14→21:25)
[2020-02-23 05:22] LABS: BASOPHILS % (AUTO) 0.1 % (0.2-1.0); HEMATOCRIT 36.3 % (36.0-47.0); HEMOGLOBIN 11.4 g/dL (12.0-16.0); LYMPHOCYTES # (AUTO) 0.6 X10^3/uL (1.3-2.9); LYMPHOCYTES % (AUTO) 5.2 % (21.0-51.0); MEAN CORPUSCULAR HEMOGLOBIN 25.7 pg (27.0-34.0); MEAN CORPUSCULAR HGB CONC 31.3 g/dL (33.0-35.0); MEAN PLATELET VOLUME 8.5 fL (7.4-11.0); MONOCYTES # (AUTO) 0.6 x10^3/uL (0.3-0.8); NEUTROPHILS % (AUTO) 89.7 % (42.0-75.0); PLATELET COUNT 453 X10^3/uL (150.0-450.0); RED BLOOD COUNT 4.43 X10^6/uL (3.5-5.4); WHITE BLOOD COUNT 12.3 X10^3/uL (3.6-10.0)
[2020-02-23] MEDS: HumuLIN R SC PRN ×3 (05:31→16:13)
[2020-02-23 05:33] LABS: ALANINE AMINOTRANSFERASE 17 Units/L (12-78); ALBUMIN 2.9 g/dL (3.4-5.0); ALKALINE PHOSPHATASE 37 Units/L (46-116); ASPARTATE AMINO TRANSFERASE 24 Units/L (15-37); BLOOD UREA NITROGEN 10 mg/dL (7-18); CALCIUM 8.3 mg/dL (8.5-10.1); CARBON DIOXIDE 25.1 mmol/L (21-32); CHLORIDE 109 mmol/L (98-107); COR CA(FOR HYPOALB) 9.2 mg/dL (8.5-10.1); COR NA(FOR HYPERGLY) 149 mmol/L (136-145); CREATININE 0.94 mg/dL (0.55-1.02); SODIUM 147 mmol/L (136-145); TOTAL PROTEIN 6.6 g/dL (6.4-8.2); eGFR NON BLACK RACES > 60 (>60)
[2020-02-23 05:44] LABS: PLATELET MORPHOLOGY COMMENT NORMAL (NORMAL)
[2020-02-23 05:45] LABS: HYPOCHROMASIA SLIGHT
--- NOTE | 2020-02-23 06:11 | RAD ---
[id number], PNEUMONIASTUDYCHEST, 1 [id number]/06/2020FINDINGSThe trachea is midline. The cardiac silhouette is mildly enlarged.. Patchy bilateral pulmonary infiltrates, unchanged. No pneumothorax.. The bony thorax is unremarkable.IMPRESSIONBilateral patchy pulmonary infiltrates unchanged from 02/22/2020Electronically signed by: Tru Hill (Feb 23, 2020 06:10:03)
[2020-02-23] MEDS: DUONEB 0.5 MG/3 MG (3 mL) NEB SCH ×4 (08:20→21:10)
[2020-02-23] MEDS: PULMICORT NEB TX 0.5 MG NEB SCH ×2 (08:20→21:10)
[2020-02-23] MEDS: NEURONTIN CAP 400 MG PO SCH ×4 (08:25→20:48)
[2020-02-23] MEDS: JANUVIA PO SCH (08:25)
[2020-02-23] MEDS: PROTONIX TAB 40 MG PO SCH (08:25)
[2020-02-23] MEDS: NABUMETONE 500 MG PO SCH ×2 (08:25→20:48)
[2020-02-23] MEDS: VITAMIN A PO SCH (08:26)
[2020-02-23] MEDS: LINZESS PO SCH (08:26)
[2020-02-23] MEDS: TRICOR TAB 160 MG PO SCH (08:26)
[2020-02-23] MEDS: VITAMIN D3 125 mcg (5,000 UNITS) PO SCH (08:26)
[2020-02-23] MEDS: LOVENOX INJ 30 MG SYR SC SCH ×2 (08:27→20:47)
[2020-02-23] MEDS: ZINC SULFATE PO SCH ×2 (08:27→20:49)
[2020-02-23] MEDS: ZESTRIL TAB 5 MG PO SCH (08:27)
[2020-02-23] MEDS: REMDESIVIR 100 MG in NS 250 ML IV 250 ML IV SCH (09:54)
--- NOTE | 2020-02-23 10:26 | PCM.PROG ---
Progress Note - Progress Note for Day of Date of Exam: 02/23/20 - Subjective Subjective: IS BEIGN TREATED FOR PNEUMONIA DUE TO COVID-19 AND HYPOXIA. TODAY, HSE IS ALERT AND ORIENTED, LYING IN BED ON MORNING ROUNDS. SHE CONTINUES WITH COMPLAINTS OF SHORTNESS OF BREATH AND WEAKNESS. SHE IS CURRENTLY UTILIZING OXYGEN VIA NASAL CANNULA AT 2 LITERS/MIN. SHE REPORTS SLIGHT IMPROVEMENT IN SYMPTOMS SINCE ADMISSION. ON EXAMINATION, HEART IS REGULAR IN RATE AND RHYTHM. BILATERAL LUNGS ARE NOTED WITH DIMINISHED LUNG SOUNDS THROUGHOUT. ABDOMEN IS ROUND, SOFT, AND NON-TENDER WITH NORMAL BOWEL SOUNDS NOTED IN ALL QUADRANTS. HER VITALS THIS MORNING ARE: 97.6-92-20-95%NC-131/75. LABS WERE OBTAINED. ABNORMAL LAB VALUES INCLUDE THE FOLLOWING: WBC 12.3, HGB 11.4, PLT COUNT 453, SODIUM 147, CHLORIDE 109, GLUCOSE 190, CALCIUM 8.3, ALK PHOS 37, CRP 3.30, ALBUMIN 2.9. ABG REVEALED: PH 7.440, PC02 39.0, P02 53.0, HC03 26.5, 02 SAT 88, BASE EXCESS 2.2, FI02 21.0. CHEST XRAY REVEALED: BILATERAL PATCHY PULMONARY INFILTRATES UNCHANGED FROM 02/22/2020. SHE IS CURRENTLY RECEIVING REMDESIVIR 100MG IV DAILY, ZOSYN 3.375G IV TID, DUONEBS QID, PULMICORT NEBS BID, SOLU-MEDROL 80MG IV Q8H, LOVENOX 30MG SC BID, HUMULIN R SLIDING SCALE, ZINC 220MG PO BID, TRICOR 160MG PO DAILY, AND HER HOME MEDICATIONS WERE RESUMED. OTHERWISE, WE PLAN TO FOLLOW UP WITH AM LABS, CHEST XRAY, AND CONTINUE TO MONITOR. - Past Medical Family Social History Past Med/Fam/Surg Hx: No changes since H&P Allergies: Allergies No Known Drug Allergies Allergy (Verified 07/24/19 22:14) - Review of Systems ROS: No change since H&P - Vital Signs and I&O's Vital Signs: Temperature 97.6 F Pulse Rate 92 Respiratory Rate 20 Blood Pressure [Left Arm] 139/89 Blood Pressure [Right Arm] 121/71 Blood Pressure [Standing] 131/76 Blood Pressure [Sitting] 121/78 Blood Pressure [Lying] 120/77 Blood Pressure 131/75 O2 Sat by Pulse Oximetry 96 Intake and Output: Intake & Output 02/20/20 02/21/20 02/22/20 02/23/20 11:59 11:59 11:59 11:59 Intake Total 708 / 708 4320 / 4320 3091 / 3091 Balance 708 / 708 4320 / 4320 3091 / 3091 - Physical Exam Oriented: Normal Eyes: Normal Ear: Normal Nose: Normal Throat: Normal Respiratory: Diminished Cardiovascular: Normal : Normal Auscultation: Bowel Sounds: Normal Palpation: Normal Tenderness: Normal Skin: Normal Musculoskeletal: Normal Psychiatric: Normal Mood Description: Calm, Appropriate Affect: Normal Speech Pattern: Clear, Appropriate - Laboratory and Diagnostics Result Diagrams: 02/23/20 05:01 02/23/20 05:01 Labs: Laboratory WBC 12.3 X10^3/uL (3.6-10.0) H 02/23/20 05:01 RBC 4.43 X10^6/uL (3.5-5.4) 02/23/20 05:01 Hgb 11.4 g/dL (12.0-16.0) L 02/23/20 05:01 Hct 36.3 % (36.0-47.0) 02/23/20 05:01 MCV 82.0 fL (80.0-100.0) 02/23/20 05:01 MCH 25.7 pg (27.0-34.0) L 02/23/20 05:01 MCHC 31.3 g/dL (33.0-35.0) L 02/23/20 05:01 RDW 16.0 % (11.6-16.5) 02/23/20 05:01 Plt Count 453 X10^3/uL (150.0-450.0) H 02/23/20 05:01 Plt Count Comment Adequate (ADEQUATE) 02/23/20 05:01 MPV 8.5 fL (7.4-11.0) 02/23/20 05:01 Neut % (Auto) 89.7 % (42.0-75.0) H 02/23/20 05:01 Lymph % (Auto) 5.2 % (21.0-51.0) L 02/23/20 05:01 [place] % (Auto) 5.0 % (0.0-13.0) 02/23/20 05:01 Eos % (Auto) 0.0 % (0.9-2.9) L 02/23/20 05:01 Baso % (Auto) 0.1 % (0.2-1.0) L 02/23/20 05:01 Neut # (Auto) 11.0 x10^3/uL (2.2-4.8) H 02/23/20 05:01 Lymph # (Auto) 0.6 X10^3/uL (1.3-2.9) L 02/23/20 05:01 [place] # (Auto) 0.6 x10^3/uL (0.3-0.8) 02/23/20 05:01 Eos # (Auto) 0.0 x10^3/uL (0.0-0.2) 02/23/20 05:01 Baso # (Auto) 0.0 X10^3/uL (0.0-0.1) 02/23/20 05:01 Absolute Nucleated RBC 0.0 /100WBC 02/23/20 05:01 Total Counted 100 02/21/20 04:44 Neutrophils % (Manual) 70 % (39-76) 02/21/20 04:44 Lymphocytes % (Manual) 22 % (13-43) 02/21/20 04:44 Monocytes % (Manual) 8 % (4-9) 02/21/20 04:44 Plt Morphology Comment Normal (NORMAL) 02/23/20 05:01 RBC Morphology Abnormal (NORMAL) A 02/23/20 05:01 Hypochromasia Slight A 02/23/20 05:01 PT 13.4 SECONDS (11.8-14.3) 02/20/20 20:32 INR Target Range - 02/20/20 20:32 INR 1.05 (0.8-1.3) 02/20/20 20:32 D-Dimer 1.05 ug/ml (0.0-0.57) H* 02/20/20 20:32 Sample Site Lr 02/23/20 04:25 ABG pH 7.440 (7.35-7.45) 02/23/20 04:25 ABG pCO2 39.0 mmHg (35.0-45.0) 02/23/20 04:25 ABG pO2 53.0 mmHg (80.0-100.0) L 02/23/20 04:25 ABG HCO3 26.5 mmol/L (22-26) H 02/23/20 04:25 ABG O2 Saturation 88.0 % (90-100) L 02/23/20 04:25 ABG Base Excess 2.2 mmol/L (-2.0-2.0) H 02/23/20 04:25 Rene Test Pos 02/23/20 04:25 A-a Gradient 48.0 mmHg 02/23/20 04:25 FiO2 21.0 02/23/20 04:25 Blood Gas Comments Terri well ae 02/23/20 04:25 Sodium 147 mmol/L (136-145) H 02/23/20 05:01 Corrected Sodium 149 mmol/L (136-145) H 02/23/20 05:01 Potassium 3.8 mmol/L (3.5-5.1) 02/23/20 05:01 Chloride 109 mmol/L (98-107) H 02/23/20 05:01 Carbon Dioxide 25.1 mmol/L (21-32) 02/23/20 05:01 BUN 10 mg/dL (7-18) 02/23/20 05:01 Creatinine 0.94 mg/dL (0.55-1.02) 02/23/20 05:01 Est GFR (MDRD) Af Amer > 60 (>60) 02/23/20 05:01 Est GFR (MDRD) Non-Af > 60 (>60) 02/23/20 05:01 Glucose 190 mg/dL (65-99) H 02/23/20 05:01 POC Glucose (mg/dL) 176 mg/dL (65-99) H 02/23/20 05:00 Lactic Acid 1.5 mmol/L (0.4-2.0) 02/20/20 20:32 Calcium 8.3 mg/dL (8.5-10.1) L 02/23/20 05:01 Corrected Calcium 9.2 mg/dL (8.5-10.1) 02/23/20 05:01 Ferritin 132 ng/mL (8-252) 02/23/20 05:01 Total Bilirubin 0.20 mg/dL (0.2-1.0) 02/23/20 05:01 AST 24 Units/L (15-37) 02/23/20 05:01 ALT 17 Units/L (12-78) 02/23/20 05:01 Alkaline Phosphatase 37 Units/L (46-116) L 02/23/20 05:01 Troponin I < 0.02 ng/mL (0-1.5) 02/21/20 04:44 C-Reactive Protein 3.30 mg/L (0-3.0) H 02/23/20 05:01 B-Natriuretic Peptide < 5.0 pg/mL (0-79) 02/20/20 20:32 Total Protein 6.6 g/dL (6.4-8.2) 02/23/20 05:01 Albumin 2.9 g/dL (3.4-5.0) L 02/23/20 05:01 Globulin 3.7 g/dL (2.5-4.5) 02/23/20 05:01 Albumin/Globulin Ratio 0.8 Ratio (1.1-2.1) L 02/23/20 05:01 SARS CoV-2 RNA Rapid SERGIO Positive (NEGATIVE) A 02/20/20 22:40 - Plan (1) Pneumonia due to COVID-19 virus Status: Acute Plan: Remdesivir, Solumedrol, Zosyn, Supplemental O2, Bronchodilators, (2) Hypoxia Status: Acute
[2020-02-23] MEDS ORDERED: GLUCOPHAGE ONE ×2 (11:55→16:16)
[2020-02-23] MEDS: GLUCOPHAGE PO SCH ×2 (11:56→16:14)
[2020-02-23] MEDS: REQUIP PO SCH (20:21)
[2020-02-23] MEDS: LIPITOR TAB 10 MG PO SCH (20:47)
[2020-02-23] MEDS: SNACK - Diabetic Appropriate PO SCH (20:47)
[2020-02-23] MEDS: MOBIC TAB 15 MG PO SCH (20:48)
[2020-02-23] MEDS: PEPCID TAB 20 MG PO SCH (20:49)
[2020-02-24] MEDS: NS 1000 ML 1,000 ML IV SCH ×2 (01:46→10:37)
[2020-02-24] MEDS ORDERED: GLUCOPHAGE ONE ×2 (04:14→17:15)
[2020-02-24 05:17] LABS: BASOPHILS % (AUTO) 0.3 % (0.2-1.0); HEMATOCRIT 35.7 % (36.0-47.0); HEMOGLOBIN 11.4 g/dL (12.0-16.0); LYMPHOCYTES # (AUTO) 0.5 X10^3/uL (1.3-2.9); LYMPHOCYTES % (AUTO) 3.6 % (21.0-51.0); MEAN CORPUSCULAR HEMOGLOBIN 25.9 pg (27.0-34.0); MEAN CORPUSCULAR VOLUME 81.2 fL (80.0-100.0); MEAN PLATELET VOLUME 8.3 fL (7.4-11.0); MONOCYTES # (AUTO) 0.6 x10^3/uL (0.3-0.8); MONOCYTES % (AUTO) 4.4 % (0.0-13.0); NEUTROPHILS # (AUTO) 11.6 x10^3/uL (2.2-4.8); NEUTROPHILS % (AUTO) 91.7 % (42.0-75.0); PLATELET COUNT 456 X10^3/uL (150.0-450.0); RED BLOOD COUNT 4.39 X10^6/uL (3.5-5.4); RED CELL DISTRIBUTION WIDTH 16.2 % (11.6-16.5); WHITE BLOOD COUNT 12.7 X10^3/uL (3.6-10.0)
[2020-02-24 05:29] LABS: ALANINE AMINOTRANSFERASE 23 Units/L (12-78); ALBUMIN 2.8 g/dL (3.4-5.0); ALKALINE PHOSPHATASE 49 Units/L (46-116); ASPARTATE AMINO TRANSFERASE 24 Units/L (15-37); BLOOD UREA NITROGEN 11 mg/dL (7-18); CALCIUM 8.7 mg/dL (8.5-10.1); CARBON DIOXIDE 27.3 mmol/L (21-32); CHLORIDE 108 mmol/L (98-107); COR CA(FOR HYPOALB) 9.7 mg/dL (8.5-10.1); COR NA(FOR HYPERGLY) 149 mmol/L (136-145); SODIUM 146 mmol/L (136-145); TOTAL PROTEIN 6.5 g/dL (6.4-8.2); eGFR NON BLACK RACES > 60 (>60)
[2020-02-24] MEDS: DUONEB 0.5 MG/3 MG (3 mL) NEB SCH ×5 (05:30→20:20)
[2020-02-24 05:48] LABS: BURR CELLS PRESENT; HYPOCHROMASIA SLIGHT; PLATELET MORPHOLOGY COMMENT NORMAL (NORMAL)
[2020-02-24] MEDS: SOLU-Medrol 40 MG VIAL IVP SCH ×3 (05:59→21:40)
[2020-02-24] MEDS: ZOSYN VIAL 3.375 GRAMS 3.375 G in NS 100 ML IV + SPIKE MINIBAG* 100 ML IV SCH ×3 (06:00→21:40)
[2020-02-24] MEDS: GLUCOPHAGE PO SCH ×2 (06:01→17:16)
--- NOTE | 2020-02-24 06:17 | RAD ---
HISTORYFollow-up COVID-19STUDYChest AP [id number] heart remains mildly enlarged. No congestive heart failure is noted. No definite infiltrates are identified. There is subsegmental atelectasis in the right lung base. The right hemidiaphragm remains elevated. No pleural effusions are identified. Bony thorax is unremarkable with the exception of postsurgical changes in the upper thoracic spine with hardware present.IMPRESSIONMild cardiomegaly without congestive heart failure, unchangedNo definite acute infiltratesSubsegmental atelectasis right lung baseElectronically signed by: KHANG MARTELL (Feb 24, 2020 06:15:54)
[2020-02-24] MEDS: PULMICORT NEB TX 0.5 MG NEB SCH ×2 (08:52→20:20)
[2020-02-24] MEDS: JANUVIA PO SCH (09:27)
[2020-02-24] MEDS: LINZESS PO SCH (09:27)
[2020-02-24] MEDS: LOVENOX INJ 30 MG SYR SC SCH ×2 (09:28→20:53)
[2020-02-24] MEDS: NEURONTIN CAP 400 MG PO SCH ×4 (09:28→20:54)
[2020-02-24] MEDS: VITAMIN D3 125 mcg (5,000 UNITS) PO SCH (09:29)
[2020-02-24] MEDS: PROTONIX TAB 40 MG PO SCH (09:29)
[2020-02-24] MEDS: TRICOR TAB 160 MG PO SCH (09:29)
[2020-02-24] MEDS: ZESTRIL TAB 5 MG PO SCH (09:30)
[2020-02-24] MEDS: ZINC SULFATE PO SCH ×2 (09:30→20:56)
[2020-02-24] MEDS: REMDESIVIR 100 MG in NS 250 ML IV 250 ML IV SCH (09:32)
[2020-02-24] MEDS: VITAMIN A PO SCH (09:33)
[2020-02-24] MEDS: NABUMETONE 500 MG PO SCH ×2 (09:48→20:54)
--- NOTE | 2020-02-24 09:55 | PCM.PROG ---
Progress Note - Progress Note for Day of Date of Exam: 02/24/20 - Subjective Subjective: IS BEING TREATED FOR PNEUMONIA DUE TO COVID-19 AND HYPOXIA. TODAY, SHE IS ALERT AND ORIENTED, LYING IN BED ON MORNING ROUNDS. SHE CONTINUES WITH COMPLAINTS OF SHORTNESS OF BREATH AND WEAKNESS. SHE IS CURRENTLY UTILIZING OXYGEN VIA NASAL CANNULA AT 2 LITERS/MIN. SHE REPORTS SLIGHT IMPROVEMENT IN SYMPTOMS SINCE ADMISSION. ON EXAMINATION, HEART IS REGULAR IN RATE AND RHYTHM. BILATERAL LUNGS ARE NOTED WITH DIMINISHED LUNG SOUNDS THROUGHOUT. ABDOMEN IS ROUND, SOFT, AND NON-TENDER WITH NORMAL BOWEL SOUNDS NOTED IN ALL QUADRANTS. HER VITALS THIS MORNING ARE: 97.8-51-21-96%NC-145/70. LABS WERE OBTAINED. ABNORMAL LAB VALUES INCLUDE THE FOLLOWING: WBC 12.7, HGB 11.4, HCT 35.7, PLT COUNT 456, SODIUM 146, CHLORIDE 108, GLUCOSE 222, ALBUMIN 2.8. CHEST XRAY REVEALED: Mild cardiomegaly without congestive heart failure, unchanged. No definite acute infiltrates. Subsegmental atelectasis right lung base. SHE IS CURRENTLY RECEIVING REMDESIVIR 100MG IV DAILY, ZOSYN 3.375G IV TID, DUONEBS QID, PULMICORT NEBS BID, SOLU-MEDROL 80MG IV Q8H, LOVENOX 30MG SC BID, HUMULIN R SLIDING SCALE, ZINC 220MG PO BID, TRICOR 160MG PO DAILY, AND HER HOME MEDICATIONS WERE RESUMED. OTHERWISE, WE PLAN TO FOLLOW UP WITH AM LABS, CHEST XRAY, AND CONTINUE TO MONITOR. - Past Medical Family Social History Past Med/Fam/Surg Hx: No changes since H&P Allergies: Allergies No Known Drug Allergies Allergy (Verified 07/24/19 22:14) - Review of Systems ROS: No change since H&P - Vital Signs and I&O's Vital Signs: Temperature 97.8 F Pulse Rate 67 Respiratory Rate 21 Blood Pressure [Left Arm] 139/89 Blood Pressure [Right Arm] 121/71 Blood Pressure [Standing] 131/76 Blood Pressure [Sitting] 121/78 Blood Pressure [Lying] 120/77 Blood Pressure 145/70 O2 Sat by Pulse Oximetry 95 Intake and Output: Intake & Output 02/21/20 02/22/20 02/23/20 02/24/20 11:59 11:59 11:59 11:59 Intake Total 708 / 708 4320 / 4320 3091 / 3091 3062 / 3062 Balance 708 / 708 4320 / 4320 3091 / 3091 3062 / 3062 - Physical Exam Oriented: Normal Eyes: Normal Ear: Normal Nose: Normal Throat: Normal Respiratory: Diminished Cardiovascular: Normal : Normal Auscultation: Bowel Sounds: Normal Palpation: Normal Tenderness: Normal Skin: Normal Musculoskeletal: Normal Psychiatric: Normal Mood Description: Calm, Appropriate Affect: Normal Speech Pattern: Clear, Appropriate - Laboratory and Diagnostics Result Diagrams: 02/24/20 04:34 02/24/20 04:34 Labs: Laboratory WBC 12.7 X10^3/uL (3.6-10.0) H 02/24/20 04:34 RBC 4.39 X10^6/uL (3.5-5.4) 02/24/20 04:34 Hgb 11.4 g/dL (12.0-16.0) L 02/24/20 04:34 Hct 35.7 % (36.0-47.0) L 02/24/20 04:34 MCV 81.2 fL (80.0-100.0) 02/24/20 04:34 MCH 25.9 pg (27.0-34.0) L 02/24/20 04:34 MCHC 32.0 g/dL (33.0-35.0) L 02/24/20 04:34 RDW 16.2 % (11.6-16.5) 02/24/20 04:34 Plt Count 456 X10^3/uL (150.0-450.0) H 02/24/20 04:34 Plt Count Comment Increased (ADEQUATE) A 02/24/20 04:34 MPV 8.3 fL (7.4-11.0) 02/24/20 04:34 Neut % (Auto) 91.7 % (42.0-75.0) H 02/24/20 04:34 Lymph % (Auto) 3.6 % (21.0-51.0) L 02/24/20 04:34 [place] % (Auto) 4.4 % (0.0-13.0) 02/24/20 04:34 Eos % (Auto) 0.0 % (0.9-2.9) L 02/24/20 04:34 Baso % (Auto) 0.3 % (0.2-1.0) 02/24/20 04:34 Neut # (Auto) 11.6 x10^3/uL (2.2-4.8) H 02/24/20 04:34 Lymph # (Auto) 0.5 X10^3/uL (1.3-2.9) L 02/24/20 04:34 [place] # (Auto) 0.6 x10^3/uL (0.3-0.8) 02/24/20 04:34 Eos # (Auto) 0.0 x10^3/uL (0.0-0.2) 02/24/20 04:34 Baso # (Auto) 0.0 X10^3/uL (0.0-0.1) 02/24/20 04:34 Absolute Nucleated RBC 0.0 /100WBC 02/24/20 04:34 Total Counted 100 02/24/20 04:34 Neutrophils % (Manual) 91 % (39-76) H 02/24/20 04:34 Lymphocytes % (Manual) 4 % (13-43) L 02/24/20 04:34 Monocytes % (Manual) 5 % (4-9) 02/24/20 04:34 Plt Morphology Comment Normal (NORMAL) 02/24/20 04:34 RBC Morphology Abnormal (NORMAL) A 02/24/20 04:34 Hypochromasia Slight A 02/24/20 04:34 [place] Cells Present 02/24/20 04:34 PT 13.4 SECONDS (11.8-14.3) 02/20/20 20:32 INR Target Range - 02/20/20 20:32 INR 1.05 (0.8-1.3) 02/20/20 20:32 D-Dimer 1.05 ug/ml (0.0-0.57) H* 02/20/20 20:32 Sample Site Lr 02/23/20 04:25 ABG pH 7.440 (7.35-7.45) 02/23/20 04:25 ABG pCO2 39.0 mmHg (35.0-45.0) 02/23/20 04:25 ABG pO2 53.0 mmHg (80.0-100.0) L 02/23/20 04:25 ABG HCO3 26.5 mmol/L (22-26) H 02/23/20 04:25 ABG O2 Saturation 88.0 % (90-100) L 02/23/20 04:25 ABG Base Excess 2.2 mmol/L (-2.0-2.0) H 02/23/20 04:25 Rene Test Pos 02/23/20 04:25 A-a Gradient 48.0 mmHg 02/23/20 04:25 FiO2 21.0 02/23/20 04:25 Blood Gas Comments Terri well ae 02/23/20 04:25 Sodium 146 mmol/L (136-145) H 02/24/20 04:34 Corrected Sodium 149 mmol/L (136-145) H 02/24/20 04:34 Potassium 4.0 mmol/L (3.5-5.1) 02/24/20 04:34 Chloride 108 mmol/L (98-107) H 02/24/20 04:34 Carbon Dioxide 27.3 mmol/L (21-32) 02/24/20 04:34 BUN 11 mg/dL (7-18) 02/24/20 04:34 Creatinine 1.00 mg/dL (0.55-1.02) 02/24/20 04:34 Est GFR (MDRD) Af Amer > 60 (>60) 02/24/20 04:34 Est GFR (MDRD) Non-Af > 60 (>60) 02/24/20 04:34 Glucose 222 mg/dL (65-99) H 02/24/20 04:34 POC Glucose (mg/dL) 209 mg/dL (65-99) H 02/24/20 05:05 Lactic Acid 1.5 mmol/L (0.4-2.0) 02/20/20 20:32 Calcium 8.7 mg/dL (8.5-10.1) 02/24/20 04:34 Corrected Calcium 9.7 mg/dL (8.5-10.1) 02/24/20 04:34 Ferritin 104 ng/mL (8-252) 02/24/20 04:34 Total Bilirubin 0.30 mg/dL (0.2-1.0) 02/24/20 04:34 AST 24 Units/L (15-37) 02/24/20 04:34 ALT 23 Units/L (12-78) 02/24/20 04:34 Alkaline Phosphatase 49 Units/L (46-116) 02/24/20 04:34 Troponin I < 0.02 ng/mL (0-1.5) 02/21/20 04:44 C-Reactive Protein 1.20 mg/L (0-3.0) 02/24/20 04:34 B-Natriuretic Peptide < 5.0 pg/mL (0-79) 02/20/20 20:32 Total Protein 6.5 g/dL (6.4-8.2) 02/24/20 04:34 Albumin 2.8 g/dL (3.4-5.0) L 02/24/20 04:34 Globulin 3.7 g/dL (2.5-4.5) 02/24/20 04:34 Albumin/Globulin Ratio 0.8 Ratio (1.1-2.1) L 02/24/20 04:34 SARS CoV-2 RNA Rapid SERGIO Positive (NEGATIVE) A 02/20/20 22:40 - Plan (1) Pneumonia due to COVID-19 virus Status: Acute Plan: Remdesivir, Solumedrol, Zosyn, Supplemental O2, Bronchodilators, (2) Hypoxia Status: Acute
[2020-02-24] MEDS: HumuLIN R SC PRN (17:50)
[2020-02-24] MEDS: LIPITOR TAB 10 MG PO SCH (20:53)
[2020-02-24] MEDS: MOBIC TAB 15 MG PO SCH (20:53)
[2020-02-24] MEDS: SNACK - Diabetic Appropriate PO SCH (20:53)
[2020-02-24] MEDS: PEPCID TAB 20 MG PO SCH (20:55)
[2020-02-24] MEDS: REQUIP PO SCH (20:56)
[2020-02-25] MEDS ORDERED: GLUCOPHAGE ONE ×2 (04:23→16:57)
[2020-02-25] MEDS: SOLU-Medrol 40 MG VIAL IVP SCH ×3 (05:07→22:00)
[2020-02-25] MEDS: ZOSYN VIAL 3.375 GRAMS 3.375 G in NS 100 ML IV + SPIKE MINIBAG* 100 ML IV SCH ×3 (05:08→22:00)
[2020-02-25 05:35] LABS: BASOPHILS % (AUTO) 0.2 % (0.2-1.0); HEMATOCRIT 36.9 % (36.0-47.0); HEMOGLOBIN 11.4 g/dL (12.0-16.0); LYMPHOCYTES # (AUTO) 0.5 X10^3/uL (1.3-2.9); LYMPHOCYTES % (AUTO) 4.4 % (21.0-51.0); MEAN CORPUSCULAR HEMOGLOBIN 25.5 pg (27.0-34.0); MEAN CORPUSCULAR HGB CONC 30.9 g/dL (33.0-35.0); MEAN CORPUSCULAR VOLUME 82.6 fL (80.0-100.0); MEAN PLATELET VOLUME 8.9 fL (7.4-11.0); MONOCYTES # (AUTO) 0.6 x10^3/uL (0.3-0.8); MONOCYTES % (AUTO) 5.4 % (0.0-13.0); NEUTROPHILS # (AUTO) 10.5 x10^3/uL (2.2-4.8); PLATELET COUNT 486 X10^3/uL (150.0-450.0); RED BLOOD COUNT 4.47 X10^6/uL (3.5-5.4); RED CELL DISTRIBUTION WIDTH 15.8 % (11.6-16.5); WHITE BLOOD COUNT 11.7 X10^3/uL (3.6-10.0)
[2020-02-25 05:58] LABS: ALANINE AMINOTRANSFERASE 30 Units/L (12-78); ALBUMIN 2.8 g/dL (3.4-5.0); ALKALINE PHOSPHATASE 30 Units/L (46-116); ASPARTATE AMINO TRANSFERASE 18 Units/L (15-37); BLOOD UREA NITROGEN 11 mg/dL (7-18); CALCIUM 8.6 mg/dL (8.5-10.1); CARBON DIOXIDE 27.2 mmol/L (21-32); CHLORIDE 108 mmol/L (98-107); COR CA(FOR HYPOALB) 9.6 mg/dL (8.5-10.1); COR NA(FOR HYPERGLY) 147 mmol/L (136-145); CREATININE 0.95 mg/dL (0.55-1.02); SODIUM 145 mmol/L (136-145); TOTAL PROTEIN 6.3 g/dL (6.4-8.2); eGFR NON BLACK RACES > 60 (>60)
[2020-02-25 06:03] LABS: HYPOCHROMASIA SLIGHT; PLATELET MORPHOLOGY COMMENT NORMAL (NORMAL)
[2020-02-25] MEDS: GLUCOPHAGE PO SCH ×2 (06:05→17:00)
[2020-02-25] MEDS: NABUMETONE 500 MG PO SCH ×2 (06:06→10:40)
[2020-02-25 06:20] LABS: ABG BASE EXCESS 4.8 mmol/L (-2.0-2.0); ABG HCO3 28.1 mmol/L (22-26)
[2020-02-25 06:21] LABS: ABG ALLEN TEST POS
--- NOTE | 2020-02-25 07:24 | RAD ---
HISTORYFollow-up COVID-19STUDYChest AP [id number] remains mildly enlarged. No congestive heart failure is not ed. No acute infiltrates are present. There is subsegmental atelectasis in the right lung base. Right hemidiaphragm remains elevated. No pleural effusions are identified. Bony thorax is unremarkable.IMP RESSIONNo change cardiomegaly without congestive heart failureNo change subsegmental atelectasis righ t lung baseElevated right hemidiaphragm, chronicElectronically signed by: KHANG MARTELL (Feb 25, 2020 07:23:11)
[2020-02-25] MEDS: LINZESS PO SCH (08:33)
[2020-02-25] MEDS: NEURONTIN CAP 400 MG PO SCH ×4 (08:33→20:46)
[2020-02-25] MEDS: JANUVIA PO SCH (08:33)
[2020-02-25] MEDS: PROTONIX TAB 40 MG PO SCH (08:34)
[2020-02-25] MEDS: TRICOR TAB 160 MG PO SCH (08:34)
[2020-02-25] MEDS: REMDESIVIR 100 MG in NS 250 ML IV 250 ML IV SCH (08:34)
[2020-02-25] MEDS: VITAMIN D3 125 mcg (5,000 UNITS) PO SCH (08:34)
[2020-02-25] MEDS: LOVENOX INJ 30 MG SYR SC SCH ×2 (08:35→20:45)
[2020-02-25] MEDS: ZINC SULFATE PO SCH ×2 (08:35→20:47)
[2020-02-25] MEDS: ZESTRIL TAB 5 MG PO SCH (08:35)
[2020-02-25] MEDS: VITAMIN A PO SCH (08:37)
[2020-02-25] MEDS: DUONEB 0.5 MG/3 MG (3 mL) NEB SCH ×4 (09:37→21:32)
[2020-02-25] MEDS: PULMICORT NEB TX 0.5 MG NEB SCH ×2 (09:37→21:32)
[2020-02-25] MEDS: NS 1000 ML 1,000 ML IV SCH (10:40)
[2020-02-25] MEDS: HumuLIN R SC PRN ×3 (11:43→20:47)
[2020-02-25] MEDS: SNACK - Diabetic Appropriate PO SCH (20:44)
[2020-02-25] MEDS: LIPITOR TAB 10 MG PO SCH (20:45)
[2020-02-25] MEDS: PEPCID TAB 20 MG PO SCH (20:46)
[2020-02-25] MEDS: REQUIP PO SCH (20:46)
[2020-02-25] MEDS: MOBIC TAB 15 MG PO SCH (20:46)
--- NOTE | 2020-02-25 20:47 | PCM.PROG ---
Progress Note - Progress Note for Day of Date of Exam: 02/25/20 - Subjective Subjective: IS BEING TREATED FOR PNEUMONIA DUE TO COVID-19 AND HYPOXIA. TODAY, SHE IS ALERT AND ORIENTED, LYING IN BED ON MORNING ROUNDS. SHE CONTINUES WITH COMPLAINTS OF SHORTNESS OF BREATH AND WEAKNESS. SHE IS CURRENTLY ON ROOM AIR. SHE DID UTILIZE OXYGEN VIA NASAL CANNULA WHILE EATING. SHE REPORTS SLIGHT IMPROVEMENT IN SYMPTOMS SINCE YESTERDAY. ON EXAMINATION, HEART IS REGULAR IN RATE AND RHYTHM. BILATERAL LUNGS ARE NOTED WITH DIMINISHED LUNG SOUNDS THROUGHOUT. ABDOMEN IS ROUND, SOFT, AND NON-TENDER WITH NORMAL BOWEL SOUNDS NOTED IN ALL QUADRANTS. HER VITALS THIS MORNING ARE: 98.2-79-21-96%-165/77. LABS WERE OBTAINED. ABNORMAL LAB VALUES INCLUDE THE FOLLOWING: WBC 11.7, HGB 11.4, PLT COUNT 486, CHLORIDE 108, GLUCOSE 199, ALK PHOS 30, TOTAL PROTEIN 6.3, ALBUMIN 2.8. CHEST XRAY REVEALED: No change cardiomegaly without congestive heart failure. No change subsegmental atelectasis right lung base. Elevated right hemidiaphragm, chronic. SHE IS CURRENTLY RECEIVING REMDESIVIR 100MG IV D AILY, ZOSYN 3.375G IV TID, DUONEBS QID, PULMICORT NEBS BID, SOLU-MEDROL 80MG IV Q8H, LOVENOX 30MG SC BID, HUMULIN R SLIDING SCALE, ZINC 220MG PO BID, TRICOR 160MG PO DAILY, AND HER HOME MEDICATIONS WERE RESUMED. WE WILL CONTINUE WITH CURRENT PLAN OF CARE TODAY AND OBTAIN AN ECHOCARDIOGRAM. OTHERWISE, WE PLAN TO FOLLOW UP WITH AM LABS, CHEST XRAY, AND CONTINUE TO MONITOR. - Past Medical Family Social History Past Med/Fam/Surg Hx: No changes since H&P Allergies: Allergies No Known Drug Allergies Allergy (Verified 07/24/19 22:14) - Review of Systems ROS: No change since H&P - Vital Signs and I&O's Vital Signs: Temperature 98.1 F Pulse Rate 59 Respiratory Rate 17 Blood Pressure [Left Arm] 139/89 Blood Pressure [Right Arm] 121/71 Blood Pressure [Standing] 131/76 Blood Pressure [Sitting] 121/78 Blood Pressure [Lying] 120/77 Blood Pressure 155/74 O2 Sat by Pulse Oximetry 96 Intake and Output: Intake & Output 12/07/02/24/20 02/25/20 02/26/20 11:59 11:59 11:59 11:59 Intake Total 3091 / 3091 3062 / 3062 3315 / 3315 1826 / 182 Balance 3091 / 3091 3062 / 3062 3315 / 3315 182 / 182 - Physical Exam Oriented: Normal Eyes: Normal Ear: Normal Nose: Normal Throat: Normal Respiratory: Diminished Cardiovascular: Normal : Normal Auscultation: Bowel Sounds: Normal Palpation: Normal Tenderness: Normal Skin: Normal Musculoskeletal: Normal Psychiatric: Normal Mood Description: Calm, Appropriate Affect: Normal Speech Pattern: Clear, Appropriate - Laboratory and Diagnostics Result Diagrams: 02/25/20 04:07 02/25/20 04:07 Labs: Laboratory WBC 11.7 X10^3/uL (3.6-10.0) H 02/25/20 04:07 RBC 4.47 X10^6/uL (3.5-5.4) 02/25/20 04:07 Hgb 11.4 g/dL (12.0-16.0) L 02/25/20 04:07 Hct 36.9 % (36.0-47.0) 02/25/20 04:07 MCV 82.6 fL (80.0-100.0) 02/25/20 04:07 MCH 25.5 pg (27.0-34.0) L 02/25/20 04:07 MCHC 30.9 g/dL (33.0-35.0) L 02/25/20 04:07 RDW 15.8 % (11.6-16.5) 02/25/20 04:07 Plt Count 486 X10^3/uL (150.0-450.0) H 02/25/20 04:07 Plt Count Comment Increased (ADEQUATE) A 02/25/20 04:07 MPV 8.9 fL (7.4-11.0) 02/25/20 04:07 Neut % (Auto) 90.0 % (42.0-75.0) H 02/25/20 04:07 Lymph % (Auto) 4.4 % (21.0-51.0) L 02/25/20 04:07 [place] % (Auto) 5.4 % (0.0-13.0) 02/25/20 04:07 Eos % (Auto) 0.0 % (0.9-2.9) L 02/25/20 04:07 Baso % (Auto) 0.2 % (0.2-1.0) 02/25/20 04:07 Neut # (Auto) 10.5 x10^3/uL (2.2-4.8) H 02/25/20 04:07 Lymph # (Auto) 0.5 X10^3/uL (1.3-2.9) L 02/25/20 04:07 [place] # (Auto) 0.6 x10^3/uL (0.3-0.8) 02/25/20 04:07 Eos # (Auto) 0.0 x10^3/uL (0.0-0.2) 02/25/20 04:07 Baso # (Auto) 0.0 X10^3/uL (0.0-0.1) 02/25/20 04:07 Absolute Nucleated RBC 0.0 /100WBC 02/25/20 04:07 Total Counted 100 02/24/20 04:34 Neutrophils % (Manual) 91 % (39-76) H 02/24/20 04:34 Lymphocytes % (Manual) 4 % (13-43) L 02/24/20 04:34 Monocytes % (Manual) 5 % (4-9) 02/24/20 04:34 Plt Morphology Comment Normal (NORMAL) 02/25/20 04:07 RBC Morphology Abnormal (NORMAL) A 02/25/20 04:07 Hypochromasia Slight A 02/25/20 04:07 [place] Cells Present 02/24/20 04:34 PT 13.4 SECONDS (11.8-14.3) 02/20/20 20:32 INR Target Range - 02/20/20 20:32 INR 1.05 (0.8-1.3) 02/20/20 20:32 D-Dimer 1.05 ug/ml (0.0-0.57) H* 02/20/20 20:32 Sample Site Lrad 02/25/20 06:17 ABG pH 7.500 (7.35-7.45) H 02/25/20 06:17 ABG pCO2 36.0 mmHg (35.0-45.0) 02/25/20 06:17 ABG pO2 50.0 mmHg (80.0-100.0) L 02/25/20 06:17 ABG HCO3 28.1 mmol/L (22-26) H 02/25/20 06:17 ABG O2 Saturation 89.0 % (90-100) L 02/25/20 06:17 ABG Base Excess 4.8 mmol/L (-2.0-2.0) H 02/25/20 06:17 Rene Test Pos 02/25/20 06:17 A-a Gradient 55.0 mmHg 02/25/20 06:17 FiO2 21.0 02/25/20 06:17 Blood Gas Comments Terri abg well-mtf 02/25/20 06:17 Sodium 145 mmol/L (136-145) 02/25/20 04:07 Corrected Sodium 147 mmol/L (136-145) H 02/25/20 04:07 Potassium 3.6 mmol/L (3.5-5.1) 02/25/20 04:07 Chloride 108 mmol/L (98-107) H 02/25/20 04:07 Carbon Dioxide 27.2 mmol/L (21-32) 02/25/20 04:07 BUN 11 mg/dL (7-18) 02/25/20 04:07 Creatinine 0.95 mg/dL (0.55-1.02) 02/25/20 04:07 Est GFR (MDRD) Af Amer > 60 (>60) 02/25/20 04:07 Est GFR (MDRD) Non-Af > 60 (>60) 02/25/20 04:07 Glucose 199 mg/dL (65-99) H 02/25/20 04:07 POC Glucose (mg/dL) 218 mg/dL (65-99) H 02/25/20 19:35 Lactic Acid 1.5 mmol/L (0.4-2.0) 02/20/20 20:32 Calcium 8.6 mg/dL (8.5-10.1) 02/25/20 04:07 Corrected Calcium 9.6 mg/dL (8.5-10.1) 02/25/20 04:07 Ferritin 81 ng/mL (8-252) 02/25/20 04:07 Total Bilirubin 0.30 mg/dL (0.2-1.0) 02/25/20 04:07 AST 18 Units/L (15-37) 02/25/20 04:07 ALT 30 Units/L (12-78) 02/25/20 04:07 Alkaline Phosphatase 30 Units/L (46-116) L 02/25/20 04:07 Troponin I < 0.02 ng/mL (0-1.5) 02/21/20 04:44 C-Reactive Protein 0.70 mg/L (0-3.0) 02/25/20 04:07 B-Natriuretic Peptide < 5.0 pg/mL (0-79) 02/20/20 20:32 Total Protein 6.3 g/dL (6.4-8.2) L 02/25/20 04:07 Albumin 2.8 g/dL (3.4-5.0) L 02/25/20 04:07 Globulin 3.5 g/dL (2.5-4.5) 02/25/20 04:07 Albumin/Globulin Ratio 0.8 Ratio (1.1-2.1) L 02/25/20 04:07 SARS CoV-2 RNA Rapid SERGIO Positive (NEGATIVE) A 02/20/20 22:40 - Plan (1) Pneumonia due to COVID-19 virus Status: Acute Plan: Remdesivir, Solumedrol, Zosyn, Supplemental O2, Bronchodilators, (2) Hypoxia Status: Acute
[2020-02-26 05:08] LABS: ABG BASE EXCESS 6.4 mmol/L (-2.0-2.0)
[2020-02-26 05:09] LABS: ABG ALLEN TEST POS; ABG HCO3 30.5 mmol/L (22-26)
[2020-02-26] MEDS: SOLU-Medrol 40 MG VIAL IVP SCH ×3 (05:18→21:00)
[2020-02-26] MEDS: ZOSYN VIAL 3.375 GRAMS 3.375 G in NS 100 ML IV + SPIKE MINIBAG* 100 ML IV SCH ×3 (05:19→21:00)
[2020-02-26] MEDS ORDERED: GLUCOPHAGE ONE ×2 (05:23→16:45)
[2020-02-26 05:46] LABS: ALANINE AMINOTRANSFERASE 23 Units/L (12-78); ALBUMIN 2.7 g/dL (3.4-5.0); ALKALINE PHOSPHATASE 30 Units/L (46-116); ASPARTATE AMINO TRANSFERASE 18 Units/L (15-37); BLOOD UREA NITROGEN 13 mg/dL (7-18); CALCIUM 8.4 mg/dL (8.5-10.1); CARBON DIOXIDE 28.9 mmol/L (21-32); CHLORIDE 106 mmol/L (98-107); COR CA(FOR HYPOALB) 9.4 mg/dL (8.5-10.1); COR NA(FOR HYPERGLY) 147 mmol/L (136-145); CREATININE 0.98 mg/dL (0.55-1.02); SODIUM 144 mmol/L (136-145); TOTAL PROTEIN 6.1 g/dL (6.4-8.2); eGFR NON BLACK RACES > 60 (>60)
[2020-02-26] MEDS: HumuLIN R SC PRN ×3 (05:51→21:00)
--- NOTE | 2020-02-26 06:11 | RAD ---
HISTORYFollow-up COVID-19STUDYChest AP [id number]/09/2020FINDINGSThe heart remains mildly enlarged. No congestive heart failure is noted. No acute alveolar infiltrates or pleural effusions are identified. Improving right basilar subsegmental atelectasis identified. Right hemidiaphragm remains elevated. No pleural effusions are identified. Bony thorax is unremarkable.IMPRESSIONNo change mild cardiomegaly without congestive heart failureImproving right basilar subsegmental atelectasisElectronically signed by: KHANG MARTELL (Feb 26, 2020 06:09:20)
[2020-02-26 06:16] LABS: BASOPHILS % (AUTO) 0.1 % (0.2-1.0); HEMOGLOBIN 11.8 g/dL (12.0-16.0); LYMPHOCYTES # (AUTO) 0.4 X10^3/uL (1.3-2.9); LYMPHOCYTES % (AUTO) 4.7 % (21.0-51.0); MEAN CORPUSCULAR HEMOGLOBIN 25.9 pg (27.0-34.0); MEAN CORPUSCULAR VOLUME 81.1 fL (80.0-100.0); MEAN PLATELET VOLUME 9.2 fL (7.4-11.0); MONOCYTES # (AUTO) 0.5 x10^3/uL (0.3-0.8); MONOCYTES % (AUTO) 5.3 % (0.0-13.0); NEUTROPHILS # (AUTO) 8.4 x10^3/uL (2.2-4.8); NEUTROPHILS % (AUTO) 89.9 % (42.0-75.0); PLATELET COUNT 507 X10^3/uL (150.0-450.0); RED BLOOD COUNT 4.56 X10^6/uL (3.5-5.4); RED CELL DISTRIBUTION WIDTH 16.2 % (11.6-16.5); WHITE BLOOD COUNT 9.4 X10^3/uL (3.6-10.0)
[2020-02-26 07:18] LABS: MICROCYTOSIS SLIGHT; PLATELET MORPHOLOGY COMMENT NORMAL (NORMAL)
[2020-02-26] MEDS: JANUVIA PO SCH (08:53)
[2020-02-26] MEDS: LOVENOX INJ 30 MG SYR SC SCH ×2 (08:54→20:55)
[2020-02-26] MEDS: LINZESS PO SCH (08:54)
[2020-02-26] MEDS: NEURONTIN CAP 400 MG PO SCH ×4 (08:55→20:53)
[2020-02-26] MEDS: VITAMIN A PO SCH (08:55)
[2020-02-26] MEDS: PROTONIX TAB 40 MG PO SCH (08:55)
[2020-02-26] MEDS: TRICOR TAB 160 MG PO SCH (08:55)
[2020-02-26] MEDS: ZINC SULFATE PO SCH ×2 (08:56→20:54)
[2020-02-26] MEDS: ZESTRIL TAB 5 MG PO SCH (08:58)
[2020-02-26] MEDS: VITAMIN D3 125 mcg (5,000 UNITS) PO SCH (08:59)
[2020-02-26] MEDS: PULMICORT NEB TX 0.5 MG NEB SCH ×2 (09:34→21:42)
[2020-02-26] MEDS: DUONEB 0.5 MG/3 MG (3 mL) NEB SCH ×4 (09:34→21:41)
[2020-02-26] MEDS: GLUCOPHAGE PO SCH (16:47)
[2020-02-26] MEDS: MOBIC TAB 15 MG PO SCH (20:53)
[2020-02-26] MEDS: PEPCID TAB 20 MG PO SCH (20:53)
[2020-02-26] MEDS: SNACK - Diabetic Appropriate PO SCH (20:54)
[2020-02-26] MEDS: REQUIP PO SCH (20:54)
[2020-02-26] MEDS: LIPITOR TAB 10 MG PO SCH (20:54)
[2020-02-26] MEDS: NS 1000 ML 1,000 ML IV SCH (20:55)
--- NOTE | 2020-02-26 21:34 | PCM.PROG ---
Progress Note - Progress Note for Day of Date of Exam: 02/26/20 - Subjective Subjective: IS BEING TREATED FOR PNEUMONIA DUE TO COVID-19 AND HYPOXIA. TODAY, SHE IS ALERT AND ORIENTED, LYING IN BED ON MORNING ROUNDS. SHE CONTINUES WITH COMPLAINTS OF SHORTNESS OF BREATH AND WEAKNESS, BUT SHE DOES REPORT SLIGHT IMPROVEMENT SINCE YESTERDAY. SHE IS CURRENTLY ON ROOM AIR. SHE DID UTILIZE OXYGEN VIA NASAL CANNULA WHILE SLEEPING. ON EXAMINATION, HEART IS REGULAR IN RATE AND RHYTHM. BILATERAL LUNGS ARE NOTED WITH DIMINISHED LUNG SOUNDS THROUGHOUT. ABDOMEN IS ROUND, SOFT, AND NON-TENDER WITH NORMAL BOWEL SOUNDS NOTED IN ALL QUADRANTS. HER VITALS THIS MORNING ARE: 98.4-55-17-95%-159/77. LABS WERE OBTAINED. ABNORMAL LAB VALUES INCLUDE THE FOLLOWING: HGB 11.8, PLT COUNT 507, GLUCOSE 205, CALCIUM 8.4, ALK PHOS 30, TOTAL PROTEIN 6.1, ALBUMIN 2.7. CHEST XRAY REVEALED: No change mild cardiomegaly without congestive heart failure. Improving right basilar subsegmental atelectasis. SHE IS CURRENTLY RECEIVING REMDESIVIR 100MG IV DAILY, ZOSYN 3.375G IV TID, DUONEBS QID, PULMICORT NEBS BID, SOLU-MEDROL 80MG IV Q8H, LOVENOX 30MG SC BID, HUMULIN R SLIDING SCALE, ZINC 220MG PO BID, TRICOR 160MG PO DAILY, AND HER HOME MEDICATIONS WERE RESUMED. OTHERWISE, WE PLAN TO FOLLOW UP WITH AM LABS, CHEST XRAY, AND CONTINUE TO MONITOR. - Past Medical Family Social History Past Med/Fam/Surg Hx: No changes since H&P Allergies: Allergies No Known Drug Allergies Allergy (Verified 07/24/19 22:14) - Review of Systems ROS: No change since H&P - Vital Signs and I&O's Vital Signs: Temperature 98.3 F Pulse Rate 78 Respiratory Rate 19 Blood Pressure [Left Arm] 139/89 Blood Pressure [Right Arm] 121/71 Blood Pressure [Standing] 131/76 Blood Pressure [Sitting] 121/78 Blood Pressure [Lying] 120/77 Blood Pressure 138/67 O2 Sat by Pulse Oximetry 98 Intake and Output: Intake & Output 02/24/20 02/25/20 02/26/20 02/27/20 11:59 11:59 11:59 11:59 Intake Total 3062 / 3062 3315 / 3315 4096 / 4096 1560 / 1560 Balance 3062 / 3062 3315 / 3315 4096 / 4096 1560 / 1560 - Physical Exam Oriented: Normal Eyes: Normal Ear: Normal Nose: Normal Throat: Normal Respiratory: Diminished Cardiovascular: Normal : Normal Auscultation: Bowel Sounds: Normal Palpation: Normal Tenderness: Normal Skin: Normal Musculoskeletal: Normal Psychiatric: Normal Mood Description: Calm, Appropriate Affect: Normal Speech Pattern: Clear, Appropriate - Laboratory and Diagnostics Result Diagrams: 02/26/20 04:42 02/26/20 04:42 Labs: Laboratory WBC 9.4 X10^3/uL (3.6-10.0) 02/26/20 04:42 RBC 4.56 X10^6/uL (3.5-5.4) 02/26/20 04:42 Hgb 11.8 g/dL (12.0-16.0) L 02/26/20 04:42 Hct 37.0 % (36.0-47.0) 02/26/20 04:42 MCV 81.1 fL (80.0-100.0) 02/26/20 04:42 MCH 25.9 pg (27.0-34.0) L 02/26/20 04:42 MCHC 32.0 g/dL (33.0-35.0) L 02/26/20 04:42 RDW 16.2 % (11.6-16.5) 02/26/20 04:42 Plt Count 507 X10^3/uL (150.0-450.0) H 02/26/20 04:42 Plt Count Comment Adequate (ADEQUATE) 02/26/20 04:42 MPV 9.2 fL (7.4-11.0) 02/26/20 04:42 Neut % (Auto) 89.9 % (42.0-75.0) H 02/26/20 04:42 Lymph % (Auto) 4.7 % (21.0-51.0) L 02/26/20 04:42 Wallace % (Auto) 5.3 % (0.0-13.0) 02/26/20 04:42 Eos % (Auto) 0.0 % (0.9-2.9) L 02/26/20 04:42 Baso % (Auto) 0.1 % (0.2-1.0) L 02/26/20 04:42 Neut # (Auto) 8.4 x10^3/uL (2.2-4.8) H 02/26/20 04:42 Lymph # (Auto) 0.4 X10^3/uL (1.3-2.9) L 02/26/20 04:42 Wallace # (Auto) 0.5 x10^3/uL (0.3-0.8) 02/26/20 04:42 Eos # (Auto) 0.0 x10^3/uL (0.0-0.2) 02/26/20 04:42 Baso # (Auto) 0.0 X10^3/uL (0.0-0.1) 02/26/20 04:42 Absolute Nucleated RBC 0.1 /100WBC 02/26/20 04:42 Total Counted 100 02/24/20 04:34 Neutrophils % (Manual) 91 % (39-76) H 02/24/20 04:34 Lymphocytes % (Manual) 4 % (13-43) L 02/24/20 04:34 Monocytes % (Manual) 5 % (4-9) 02/24/20 04:34 Plt Morphology Comment Normal (NORMAL) 02/26/20 04:42 RBC Morphology Abnormal (NORMAL) A 02/26/20 04:42 Hypochromasia Slight A 02/25/20 04:07 Microcytosis Slight A 02/26/20 04:42 Beata Cells Present 02/24/20 04:34 PT 13.4 SECONDS (11.8-14.3) 02/20/20 20:32 INR Target Range - 02/20/20 20:32 INR 1.05 (0.8-1.3) 02/20/20 20:32 D-Dimer 1.05 ug/ml (0.0-0.57) H* 02/20/20 20:32 Sample Site Lrad 02/26/20 05:05 ABG pH 7.480 (7.35-7.45) H 02/26/20 05:05 ABG pCO2 41.0 mmHg (35.0-45.0) 02/26/20 05:05 ABG pO2 66.0 mmHg (80.0-100.0) L 02/26/20 05:05 ABG HCO3 30.5 mmol/L (22-26) H* 02/26/20 05:05 ABG O2 Saturation 94.0 % (90-100) 02/26/20 05:05 ABG Base Excess 6.4 mmol/L (-2.0-2.0) H 02/26/20 05:05 Rene Test Pos 02/26/20 05:05 A-a Gradient 32.0 mmHg 02/26/20 05:05 FiO2 21.0 02/26/20 05:05 Blood Gas Comments Terri abg well-mtf 02/26/20 05:05 Sodium 144 mmol/L (136-145) 02/26/20 04:42 Corrected Sodium 147 mmol/L (136-145) H 02/26/20 04:42 Potassium 3.7 mmol/L (3.5-5.1) 02/26/20 04:42 Chloride 106 mmol/L (98-107) 02/26/20 04:42 Carbon Dioxide 28.9 mmol/L (21-32) 02/26/20 04:42 BUN 13 mg/dL (7-18) 02/26/20 04:42 Creatinine 0.98 mg/dL (0.55-1.02) 02/26/20 04:42 Est GFR (MDRD) Af Amer > 60 (>60) 02/26/20 04:42 Est GFR (MDRD) Non-Af > 60 (>60) 02/26/20 04:42 Glucose 205 mg/dL (65-99) H 02/26/20 04:42 POC Glucose (mg/dL) 212 mg/dL (65-99) H 02/26/20 19:54 Lactic Acid 1.5 mmol/L (0.4-2.0) 02/20/20 20:32 Calcium 8.4 mg/dL (8.5-10.1) L 02/26/20 04:42 Corrected Calcium 9.4 mg/dL (8.5-10.1) 02/26/20 04:42 Ferritin 68 ng/mL (8-252) 02/26/20 04:42 Total Bilirubin 0.50 mg/dL (0.2-1.0) 02/26/20 04:42 AST 18 Units/L (15-37) 02/26/20 04:42 ALT 23 Units/L (12-78) 02/26/20 04:42 Alkaline Phosphatase 30 Units/L (46-116) L 02/26/20 04:42 Troponin I < 0.02 ng/mL (0-1.5) 02/21/20 04:44 C-Reactive Protein < 0.50 mg/L (0-3.0) 02/26/20 04:42 B-Natriuretic Peptide < 5.0 pg/mL (0-79) 02/20/20 20:32 Total Protein 6.1 g/dL (6.4-8.2) L 02/26/20 04:42 Albumin 2.7 g/dL (3.4-5.0) L 02/26/20 04:42 Globulin 3.4 g/dL (2.5-4.5) 02/26/20 04:42 Albumin/Globulin Ratio 0.8 Ratio (1.1-2.1) L 02/26/20 04:42 SARS CoV-2 RNA Rapid SERGIO Positive (NEGATIVE) A 02/20/20 22:40 - Plan (1) Pneumonia due to COVID-19 virus Status: Acute Plan: Remdesivir, Solumedrol, Zosyn, Supplemental O2, Bronchodilators, (2) Hypoxia Status: Acute
[2020-02-27 05:13] LABS: BASOPHILS % (AUTO) 0.2 % (0.2-1.0); EOSINOPHILS % (AUTO) 0.1 % (0.9-2.9); HEMOGLOBIN 11.9 g/dL (12.0-16.0); LYMPHOCYTES # (AUTO) 0.3 X10^3/uL (1.3-2.9); LYMPHOCYTES % (AUTO) 3.9 % (21.0-51.0); MEAN CORPUSCULAR HEMOGLOBIN 25.6 pg (27.0-34.0); MEAN CORPUSCULAR HGB CONC 31.4 g/dL (33.0-35.0); MEAN CORPUSCULAR VOLUME 81.6 fL (80.0-100.0); MONOCYTES # (AUTO) 0.4 x10^3/uL (0.3-0.8); MONOCYTES % (AUTO) 4.3 % (0.0-13.0); NEUTROPHILS # (AUTO) 7.5 x10^3/uL (2.2-4.8); NEUTROPHILS % (AUTO) 91.5 % (42.0-75.0); PLATELET COUNT 524 X10^3/uL (150.0-450.0); RED BLOOD COUNT 4.65 X10^6/uL (3.5-5.4); RED CELL DISTRIBUTION WIDTH 16.2 % (11.6-16.5); WHITE BLOOD COUNT 8.2 X10^3/uL (3.6-10.0)
[2020-02-27] MEDS ORDERED: GLUCOPHAGE ONE (05:15)
[2020-02-27 05:16] LABS: ABG BASE EXCESS 8.9 mmol/L (-2.0-2.0)
[2020-02-27 05:17] LABS: ABG ALLEN TEST POS; ABG HCO3 34.1 mmol/L (22-26)
[2020-02-27] MEDS: SOLU-Medrol 40 MG VIAL IVP SCH (05:18)
[2020-02-27] MEDS: ZOSYN VIAL 3.375 GRAMS 3.375 G in NS 100 ML IV + SPIKE MINIBAG* 100 ML IV SCH (05:18)
[2020-02-27 05:43] LABS: ALANINE AMINOTRANSFERASE 28 Units/L (12-78); ALBUMIN 2.7 g/dL (3.4-5.0); ALKALINE PHOSPHATASE 51 Units/L (46-116); ASPARTATE AMINO TRANSFERASE 22 Units/L (15-37); BLOOD UREA NITROGEN 13 mg/dL (7-18); CALCIUM 8.6 mg/dL (8.5-10.1); CARBON DIOXIDE 26.3 mmol/L (21-32); CHLORIDE 102 mmol/L (98-107); COR CA(FOR HYPOALB) 9.6 mg/dL (8.5-10.1); COR NA(FOR HYPERGLY) 141 mmol/L (136-145); SODIUM 138 mmol/L (136-145); TOTAL PROTEIN 6.1 g/dL (6.4-8.2); eGFR NON BLACK RACES > 60 (>60)
[2020-02-27 05:49] LABS: PLATELET MORPHOLOGY COMMENT NORMAL (NORMAL)
--- NOTE | 2020-02-27 06:26 | RAD ---
HISTORYCOVID, SOBSTUDYCHEST, 1 [id number] trachea is midline. The cardiac silhouette is mildly enlarged.. The lungs are clear without focal infiltrate or effusion. The bony thorax is unremarkable.IMPRESSIONMild cardiomegaly.No active cardiopulmonary diseaseElectronically signed by: Tru Hill (Feb 27, 2020 06:24:55)
[2020-02-27] MEDS: GLUCOPHAGE PO SCH (06:55)
[2020-02-27] MEDS: NS 1000 ML 1,000 ML IV SCH ×2 (07:58→11:39)
[2020-02-27] MEDS: LINZESS PO SCH (09:13)
[2020-02-27] MEDS: JANUVIA PO SCH (09:13)
[2020-02-27] MEDS: LOVENOX INJ 30 MG SYR SC SCH (09:14)
[2020-02-27] MEDS: TRICOR TAB 160 MG PO SCH (09:15)
[2020-02-27] MEDS: ZINC SULFATE PO SCH (09:15)
[2020-02-27] MEDS: PROTONIX TAB 40 MG PO SCH (09:15)
[2020-02-27] MEDS: ZESTRIL TAB 5 MG PO SCH (09:15)
[2020-02-27] MEDS: VITAMIN D3 125 mcg (5,000 UNITS) PO SCH (09:16)
[2020-02-27] MEDS: VITAMIN A PO SCH (09:16)
[2020-02-27] MEDS: PULMICORT NEB TX 0.5 MG NEB SCH (09:38)
[2020-02-27] MEDS: DUONEB 0.5 MG/3 MG (3 mL) NEB SCH (09:38)
[2020-02-27] MEDS ORDERED: MAGIC MOUTHWASH MT ONE (09:52)
[2020-02-27] MEDS: NEURONTIN CAP 400 MG PO SCH (11:39)
[2020-02-27 12:04] VITALS: BP 159/86
== END 2020-02-27 11:10 | disposition home or self-care (01) | DRG 177 ==
LOC: ER 19:25 → ICU 02-21 00:06
PROVIDERS: ADMIT Family Medicine; ATTEND Internal Medicine